=== PATIENT | female | born 1985 | race African-American/Black ===

== ENCOUNTER 2016-06-08 14:43 | Inpatient (IN) | payer MEDICAID, OTHER ==
[~2016-06-08] VITALS: Ht 177.8 cm; Wt 53.1 kg
[~2016-06-08 14:43] MED LIST: ACETAMINOPHEN-1 EAC1 ORAL; ATIVAN0.5 MG PO; AZITHROMYCIN250 MG ORAL; CIPRO500 MG PO; FLAGYL500 MG ORAL; IBUPROFEN600 MG ORAL; IRON325 M2 PO; MACROBID100 MG ORAL; METRONIDAZOLE500 MG ORAL; NKM; NORCO 5-325 TA1 EACH ORAL; PERCOCET 5-3251 EACH ORAL; PHENAZOPYRIDIN200 MG PO; PHENERGAN6.25 MG/5 ORAL; TRAMADOL HCL50 MG ORAL; VIBRAMYCIN100 MG ORAL; ZOFRAN ODT4 MG ORAL
--- NOTE | 2016-06-08 15:17 | Emergency Room Report ---
History of Present Illness General Chief Complaint: Abdominal Pain Source: Patient (Tanesha Bingham) Present Illness HPI 30 YO Female presents emergency department complaining of intermittent 10 /10 in severity right lower abdominal pain x3 days. Patient states she has had lower abdominal pain/discomfort for approximately 3 months and has a history of endometriosis however she states over the course the last 3 days she has had decrease in appetite and frequent intermittent sharp pains on the right lower quadrant. Patient denies constipation or diarrhea she denies vomiting she denies blood in the stool or black tarry stools. Patient denies history of STD she reports some mild thick white vaginal discharge. denies spotting. reports dyspareunia. Denies recent unprotected intercourse. Denies area denies frequency, or dysuria, hematuria. Patient denies trauma or fall. Denies CP, Palpitations, LOC, AMS, dizziness, Changes in Vision, Sensation, paresthesias, or a sudden severe headache. (Tanesha Bingham) Allergies: Coded Allergies: No Known Allergies (Verified , 12/30/10) Patient History Past Medical History: see triage record Past Surgical History: none Pertinent Family History: none Last Menstrual Period: 05/20/16 Now: No Immunizations: UTD Reviewed Nursing Documentation: PMH: Agreed, PSxH: Agreed (Tanesha Bingham) Nursing Documentation-PMH Past Medical History: No History, Except For (Tanesha Bingham) Review of Systems All Other Systems: negative except mentioned in HPI (Tanesha Bingham) Physical Exam Vital Signs Date Time Temp Pulse Resp B/P Pulse Ox O2 Delivery O2 Flow Rate FiO2 06/08/16 14:53 98.2 96 16 115/73 100 Room Air Sp02 EP Interpretation: reviewed, normal General Appearance: no apparent distress, alert, GCS 15, non-toxic Head: normocephalic, atraumatic Eyes: bilateral eye PERRL, bilateral eye normal inspection ENT: hearing grossly normal, normal pharynx, no angioedema, normal voice Neck: full range of motion, supple/symm/no masses Respiratory: chest non-tender, lungs clear, normal breath sounds, speaking full sentences Cardiovascular #1: regular rate, rhythm, no edema Gastrointestinal: normal bowel sounds, soft, no rebound, tenderness - moderate RLQ Tenderness to palpation, pt. also has mid, and left lower quadrant tenderness however not as appreciable as RLQ TTP. negative psoas sign , other Rectal: deferred Genitourinary: normal inspection, no CVA tenderness, cervix normal, ext genitalia/vag normal, os closed, other - Pt exhibits pelvic discomfort during pelvic exam, cervix is tender, thick white d/c is noted. Bilateral adnexal TTP on bimanual exam Musculoskeletal: back normal, gait/station normal, normal range of motion, non- tender, no calf tenderness Neurologic: alert, oriented x3, responsive, motor strength/tone normal, sensory intact, speech normal Psychiatric: judgement/insight normal, memory normal, mood/affect normal Skin: normal color, no rash, warm/dry, well hydrated Lymphatic: no adenopathy (Tanesha Bingham) Medical Decision Making PA Attestation Dr. Pelaez is my supervising Physician whom patient management has been discussed with. (Tanesha Bingham) Medicare Attestation I agree with the exam workup and findings of this patient Patient will require admission for significantly low hemoglobin Contact was made with the admitting physician (JOVANNI PELAEZ D.O.) Diagnostic Impression: Primary Impression: Anemia Qualified Codes: D64.9 - Anemia, unspecified Additional Impression: Bacterial vaginosis ER Course Ddx considered but are not limited to Diverticulitis, acute appy, diarrhea,UC, PUD, GE, pancreatitis, gallstone, renal stone, , PID, ovarian cysts Vital signs: are WNL, pt. is afebrile H&PE are most consistent with moderate RLQ abdominal pain will r/o appendicitis , and do pelvic examination. ORDERS: -CBC: Hb 7.7 , hct 26.7 - CMP: unremarkable -lipase: unremarkable - UA: unremarkable -Vaginal Wet Mount: few clue cells, few bacteria -Type and Screen: O POSITIVE Urine Hcg : negative - CT Abdomen and Pelvis With IV and ORAL Contrast: recently ruptured ovarian cyst per official radiology report. -Pelvic US: increased pelvic vascularity, minimal free-fluid in the cul-de-sac , good Doppler flow bilaterally per preliminary US report. ED INTERVENTIONS: -30mg Toradol IV -4mg morphine IV I feel this is a highly complex case requiring extensive work up including /CT/ US, Blood/urine lab work, repeat exams while in ED, and administration of strong opiates/narcotics for pain control, blood transfusion, and admission. DISPOSITION: at this time pt. will be admitted to Dr. Fitzpatrick for symptomatic anemia. Dr. Fitzpatrick agreed to admit the pt. and to continue pt. care management. Labs Test 06/08/16 15:00 06/08/16 15:40 Urine Color Pale yellow Urine Appearance Clear Urine pH 6 (4.5-8.0) Urine Specific [place] 1.010 (1.005-1.035) Urine Protein Negative (NEGATIVE) Urine Glucose (UA) Negative (NEGATIVE) Urine Ketones Negative (NEGATIVE) Urine Occult Blood 1+ (NEGATIVE) Urine Nitrite Negative (NEGATIVE) Urine Bilirubin Negative (NEGATIVE) Urine Urobilinogen Normal MG/DL (0.0-1.0) Urine Leukocyte Esterase Negative (NEGATIVE) Urine RBC 0-2 /HPF (0 - 2) Urine WBC 0-2 /HPF (0 - 2) Urine Squamous Epithelial Cells Few /LPF (NONE/OCC) Urine Bacteria Few /HPF (NONE) Urine HCG, Qualitative Negative White Blood Count 7.2 K/UL (4.8-10.8) Red Blood Count 4.20 M/UL (4.20-5.40) Hemoglobin 7.7 G/DL (12.0-16.0) Hematocrit 26.8 % (37.0-47.0) Mean Corpuscular Volume 64 FL (80-99) Mean Corpuscular Hemoglobin 18.5 PG (27.0-31.0) Mean Corpuscular Hemoglobin Concent 28.9 G/DL (32.0-36.0) Red Cell Distribution Width 15.2 % (11.6-14.8) Platelet Count 257 K/UL (150-450) Mean Platelet Volume 6.2 FL (6.5-10.1) Neutrophils (%) (Auto) % (45.0-75.0) Lymphocytes (%) (Auto) % (20.0-45.0) Monocytes (%) (Auto) % (1.0-10.0) Eosinophils (%) (Auto) % (0.0-3.0) Basophils (%) (Auto) % (0.0-2.0) Sodium Level 138 mEQ/L (135-145) Potassium Level 3.7 mEQ/L (3.4-4.9) Chloride Level 98 mEQ/L (98-107) Carbon Dioxide Level 26 mEQ/L (20-30) Anion Gap 14 (5-15) Blood Urea Nitrogen 7 mg/dL (7-23) Creatinine 0.9 mg/dL (0.5-0.9) Estimat Glomerular Filtration Rate > 60 mL/min (>60) Glucose Level 105 mg/dL (74-106) Calcium Level 9.3 mg/dL (8.6-10.2) Total Bilirubin 0.4 mg/dL (0.0-1.2) Aspartate Amino Transf (AST/SGOT) 14 U/L (5-40) Alanine Aminotransferase (ALT/SGPT) 6 U/L (3-33) Alkaline Phosphatase 28 U/L (35-104) Total Protein 7.2 g/dL (6.6-8.7) Albumin 4.3 g/dL (3.5-5.2) Globulin 2.9 g/dL Albumin/Globulin Ratio 1.4 (1.0-2.7) Lipase 17 U/L (< 60) (Tanesha Bingham) Last Vital Signs Date Time Temp Pulse Resp B/P Pulse Ox O2 Delivery O2 Flow Rate FiO2 06/08/16 14:53 98.2 96 16 115/73 100 Room Air (Tanesha Bingham) Disposition: ADMITTED INPATIENT Condition: Serious Tanesha Bingham June 08, 2016 15:17 JOVANNI PELAEZ D.O. June 08, 2016 18:17
[2016-06-08] MEDS ORDERED: Ketorolac 30mg Inj IV ONE (15:45)
[2016-06-08 16:00] LABS: APPEARANCE,URINE CLEAR; KETONES,URINE NEGATIVE (NEGATIVE); LEUKOCYTE ESTERASE ,URINE NEGATIVE (NEGATIVE); NITRITE,URINE NEGATIVE (NEGATIVE); PH,URINE 6 (4.5-8.0); PROTEIN,URINE NEGATIVE (NEGATIVE); UROBILINOGEN,URINE NORMAL MG/DL (0.0-1.0)
[2016-06-08 16:07] LABS: MEAN CORPUSCULAR HEMOGLOBIN 18.5 PG (27.0-31.0); MEAN CORPUSCULAR HGB CONC 28.9 G/DL (32.0-36.0); MEAN CORPUSCULAR VOLUME 64 FL (80-99); MEAN PLATELET VOLUME 6.2 FL (6.5-10.1); PLATELET COUNT 257 K/UL (150-450); RED CELL DISTRIBUTION WIDTH 15.2 % (11.6-14.8); WHITE BLOOD COUNT 7.2 K/UL (4.8-10.8)
[2016-06-08 16:15] LABS: ALANINE AMINOTRANSFERASE 6 U/L (3-33); ALBUMIN/GLOBULIN RATIO 1.4 (1.0-2.7); ANION GAP 14 (5-15); ASPARTATE AMINO TRANSFERASE 14 U/L (5-40); CALCIUM 9.3 mg/dL (8.6-10.2); CARBON DIOXIDE 26 mEQ/L (20-30); CHLORIDE 98 mEQ/L (98-107); CREATININE 0.9 mg/dL (0.5-0.9); GLOMERULAR FILTRATION RATE > 60 mL/min (>60); HEMOLYSIS 1; LIPASE 17 U/L (< 60); POTASSIUM 3.7 mEQ/L (3.4-4.9); SODIUM 138 mEQ/L (135-145); TOTAL PROTEIN 7.2 g/dL (6.6-8.7)
[2016-06-08 16:20] LABS: RBC,URINE 0-2 /HPF (0 - 2); WBC,URINE 0-2 /HPF (0 - 2)
[2016-06-08 16:21] LABS: BACTERIA,URINE FEW /HPF; SQUAMOUS EPITHELIAL CELL,UR FEW /LPF (NONE/OCC)
[2016-06-08] MEDS ORDERED: Morphine Sulfate 4mg/ml Inj IVP ONE (17:45)
[2016-06-08] MEDS ORDERED: TRAMADOL HCL50 MG ORAL (18:50)
[2016-06-08 19:15] VITALS: BP 110/74
[2016-06-08 19:20] LABS: ANISOCYTOSIS 2+; BAND NEUTROPHILS % (MANUAL) 1 % (0-8); BASOPHILS % (MANUAL) 0 % (0-2); EOSINOPHILS % (MANUAL) 0 % (0-3); HYPOCHROMASIA 2+; LYMPHOCYTES % (MANUAL) 21 % (20-45); NEUTROPHILS % (MANUAL) 70 % (45-75); PLATELET ESTIMATE ADEQUATE; PLATELET MORPHOLOGY NORMAL; TOTAL CELLS COUNTED 100
[2016-06-08 20:35] VITALS: BP 108/56
[2016-06-08] MEDS ORDERED: Morphine Sulfate 2mg/ml Inj IVP PRN (21:45)
[2016-06-08] MEDS ORDERED: Mylanta II UD 30ml ORAL PRN (21:45)
[2016-06-08] MEDS ORDERED: LORazepam Inj 2mg/ml 1ml IV PRN (21:45)
[2016-06-08] MEDS ORDERED: Miralax 17gm pkt ORAL PRN (21:45)
[2016-06-08] MEDS ORDERED: Zolpidem 5mg tab ORAL PRN (21:45)
[2016-06-08 22:01] LABS: INR 1.1 (0.9-1.1)
[2016-06-08 22:19] LABS: PATH BLOOD SMEAR/OMC SENT TO PATHOLOGIST
[2016-06-08 22:40] VITALS: BP_SYST 101; BP_SYST 111; BP_DIAS 62; BP_DIAS 96
[2016-06-08 23:00] VITALS: BP 112/67
[2016-06-08 23:13] LABS: RETICULOCYTE COUNT 0.4 % (0.0-2.0)
[2016-06-09] VITALS: BP 123/44
[2016-06-09] MEDS ORDERED: traMADol 50mg tab ORAL PRN (03:00)
[2016-06-09] MEDS ORDERED: Tubing Blood Filter IV ONE (03:29)
[2016-06-09] MEDS ORDERED: NS 550ML IV ONE (03:29)
--- NOTE | 2016-06-09 10:23 | Diagnostic Imaging Report ---
Indication:Lower abdominal and pelvic pain Technique: Grayscale and duplex Doppler imaging of the pelvis performed utilizing a transabdominal scan and endovaginal scan. Comparison: None Findings: Uterus is retroverted and slightly heterogeneous. The central endometrial complex is normal in thickness measuring 8 mm. There is increased echogenicity of the and show follicles and good Doppler evidence of blood flow. There is some free fluid which may be physiologic. Uterus is 8.7 x 6.6 x 5.2 cm. Right ovary 4.9 x 4.1 x 2.4 cm. Left ovary 3.8 x 4.3 x 2.2 cm. Impression: Negative pelvic ultrasound
--- NOTE | 2016-06-09 12:33 | Diagnostic Imaging Report ---
Indication: Abdominal pain Technique: Continuous helical transaxial imaging of the abdomen and pelvis was obtained from the lung bases to the pubic symphysis during intravenous contrast administration. Coronal 2-D reformats were also obtained. Study obtained in a Siemens sensation [address] Total Dose length Product (DLP): [address] Dose Index Volume (CTDIvol): 14 mGy Comparison: March 08, 2011 Findings: The lung bases are clear. The liver, spleen, pancreas, gallbladder, kidneys and adrenal glands are unremarkable. There is a tiny hypodensity in the left lobe of the liver (image 10, series 3) probably cystic in nature. There is no hydronephrosis. There is no evidence of bowel obstruction. The uterus is heterogeneous in appearance. There is a small amount of free fluid within the pelvis which could very well be physiologic. Please refer to the pelvic ultrasound report. Impression: No acute findings. Minimal free fluid within the pelvis likely physiologic. Tiny liver hypodensity probably cystic. Please refer to the separately dictated pelvic ultrasound report. The CT scanner at [facility] is accredited by the [employer] and the scans are performed using protocols designed to limit radiation exposure to as low as reasonably achievable to attain images of sufficient resolution adequate for diagnostic evaluation.
--- NOTE | 2016-06-12 10:30 | Discharge Summary ---
Discharge Summary Hospital Course Date of Admission June 08, 2016 at 18:10 Date of Discharge June 09, 2016 at 03:30 Admitting Diagnosis symptomatic anemia GALDINO Nelson is a 30 year old female who was admitted on June 08, 2016 at 18:10 for Symptomatic Anemia Hospital Course dc summary #[id number] Discharge Discharge Disposition Patient signed AMA Discharge Diagnoses: Discharge Instructions Discharge Instructions Special Instructions I have been assigned to complete a D/C Summary on this account. I was not involved in the patient management Jada Leiva NP (Vanchtein) June 12, 2016 10:30
--- NOTE | 2016-06-13 04:39 | Discharge Summary 2 SIG ---
DATE OF ADMISSION: 06/08/2016 DATE OF SIGNING AGAINST MEDICAL ADVICE: 06/09/2016 REASON FOR ADMISSION: 30-year-old female presented to the emergency room with complaint of intermittent in severity, highest 10/10 right lower quadrant abdomen pain for three days. The patient stated , that she had this discomfort intermittently for three months. Patient with a history of endometriosis. However, over the course of the last three days, she had a decrease in appetite and frequent intermittent sharp pains in the right lower quadrant. The patient denied nausea, vomiting, constipation, and diarrhea. She denied blood in stool or black tarry stool. The patient denied history of STD. She did report mild thick white vaginal discharge, but denied vaginal spotting. The patient reported dyspareunia. The patient denied . The patient denied urinary frequency or dysuria. The patient denied recent unprotected sex. No hematuria. In the emergency room the patient was afebrile and normotensive. Pulse oximetry was stable on room air. Hemoglobin - 7.7 and hematocrit- 26.7. The patient had subsequently undergone CT of the abdomen and pelvis which revealed no acute findings. Minimal free fluid within the pelvis, likely physiological. Tiny liver hypodensity, probably cystic. Abdominal, pelvic, and transvaginal ultrasound revealed a retroverted uterus, slightly heterogeneous. Central endometrial complex was normal in thickness, measuring 8 mm. Increased echogenicity. Good Doppler evidence of blood flow. The uterus measured 8.7 x 6.6 x 5.2. Right ovary 4.9 x 4.1 x 2.4 and left ovary 3.8 x 4.3 x 2.2. Negative pelvic ultrasound. Vaginal wet mount revealed some clue cells and few bacteria. The patient was typed and screened. Urine test was negative. CT of the pelvis revealed recently ruptured ovarian cyst. The patient was medicated for pain with 30 mg of Toradol IV and 4 mg of morphine. All other laboratories were unremarkable. UA was unremarkable. Lipase, electrolytes, renal and liver parameters all were stable. The patient was admitted for blood transfusion. ADMITTING DIAGNOSES: 1. Acute symptomatic anemia. 2. Right lower quadrant abdominal pain. 3. Bacterial vaginosis. HOSPITAL STAY: The patient was admitted. The patient was transfused with 2 units of packed red blood cells. Anemia workup revealed iron-deficiency anemia. B12 stable, folate stable, CEA within normal limits. Serology for Chlamydia trachomatis and Neisseria gonorrhoeae was negative. The patient decided to sign against medical advice. Risks and consequences for signing against medical advice were explained to the patient by the nursing staff. The patient was insisted and signed the form. FINAL DIAGNOSES: 1. Right lower quadrant abdominal pain, likely secondary to recently ruptured ovarian cyst. 2. Acute symptomatic anemia. 3. Iron-deficiency anemia. 4. Status post two units packed red blood cell transfusion. 5. Bacterial vaginosis. Cristian Fitzpatrick M.D. I have been assigned to dictate discharge summary on this account and I was not involved in the patient's management. Jada Floreselvira NJosefa DR: JONATHON JOB#: [id number] CC: LES
== END 2016-06-09 03:30 | disposition left against medical advice (07) | DRG 532 ==
LOC: EMR 15:18 → 3E 18:10 → EDBEDREQ 18:58
PROC: 30233N1 Transfusion of Nonautologous Red Blood Cells into Peripheral Vein, Percutaneous Approach (ICD-10-PCS; principal; 2016-06-08)
DX: N83.291 Other ovarian cyst, right side (principal); D50.9 Iron deficiency anemia, unspecified; R10.31 Right lower quadrant pain; N76.0 Acute vaginitis
CPT/HCPCS: 36415; 74177; 76830; 76856; 80053; 81003; 81025; 82378; 82607; 82746; 83540; 83550; 83615; 83690; 85007; 85025; 85044; 85060; 85610; 85651; 85730; 86850; 86900; 86901; 86920; 87210; 87491; 87590

== ENCOUNTER 2016-08-16 10:53 | Emergency (ER) | payer MEDICAID ==
[~2016-08-16] VITALS: Ht 177.8 cm; Wt 54.0 kg
[2016-08-16 11:11] VITALS: BP 100/64
--- NOTE | 2016-08-16 11:24 | Emergency Room Report ---
History of Present Illness General Chief Complaint: Upper Respiratory Illness Source: Patient Present Illness HPI 4 days of upper respiratory symptoms. She also has pressure in her face and green discharge from her nose. Lots of phlegm. Makes her nauseated with one episode of vomiting. No diarrhea, dysuria, rashes. Has had sinusitis in the past. Normal last period. Allergies: Coded Allergies: No Known Allergies (Verified , 12/30/10) Patient History Past Medical History: see triage record Social History: Denies: smoking Social History Narrative unemployed Last Menstrual Period: July Now: No Reviewed Nursing Documentation: PMH: Agreed, PSxH: Agreed Nursing Documentation-PMH Hx Cardiac Problems: No Hx Cancer: No Hx Gastrointestinal Problems: No Hx Neurological Problems: No Review of Systems All Other Systems: negative except mentioned in HPI Physical Exam Vital Signs Date Time Temp Pulse Resp B/P Pulse Ox O2 Delivery O2 Flow Rate FiO2 08/16/16 11:04 98.2 87 20 100/64 100 Room Air Sp02 EP Interpretation: reviewed, normal General Appearance: well appearing, no apparent distress Head: normocephalic, atraumatic Eyes: bilateral eye PERRL, bilateral eye normal inspection ENT: hearing grossly normal, normal voice, moist mucus membranes, nasal congestion Neck: full range of motion, supple Respiratory: chest non-tender, lungs clear, normal breath sounds, no respiratory distress, speaking full sentences Cardiovascular #1: regular rate, rhythm Gastrointestinal: normal inspection Musculoskeletal: gait/station normal, normal range of motion, no calf tenderness Neurologic: alert, normal gait, grossly normal Psychiatric: mood/affect normal Skin: no rash Medical Decision Making Diagnostic Impression: Primary Impression: Sinusitis Qualified Codes: J01.40 - Acute pansinusitis, unspecified ER Course Patient with URI and sinus pain. Ddx: viral, bacterial, sinusitis, bronchitis amongst others. She states antibiotics help. No bronchospasm heard. Levaquin begun. Patient stable for outpatient observation and treatment. Last Vital Signs Date Time Temp Pulse Resp B/P Pulse Ox O2 Delivery O2 Flow Rate FiO2 08/16/16 11:35 98.2 20 100/64 100 Room Air 08/16/16 11:11 87 Status: improved Disposition: HOME, SELF-CARE Condition: Improved Scripts Chlorpheniramine Maleate (CHLOR-TRIMETON) 4 Mg Tablet 4 MG PO Q6HR Y for congestion, #10 TAB Prov: Gabriel Garcia M.D. 08/16/16 Guaifenesin/Codeine Phos* (ROBITUSSIN AC*) 118 Ml Liquid 5 ML ORAL Q6H Y for For Cough, #90 ML 0 Refills Prov: Gabriel Garcia M.D. 08/16/16 Levofloxacin* (LEVAQUIN*) 500 Mg Tablet 500 MG ORAL DAILY, #7 TAB Prov: Gabriel Garcia M.D. 08/16/16 Gabriel Garcia M.D. Aug 16, 2016 11:24
[2016-08-16] MEDS ORDERED: GUAIFENESIN-CO118 M1 ORAL (11:26)
[2016-08-16] MEDS ORDERED: LEVAQUIN500 MG ORAL (11:26)
[2016-08-16] MEDS ORDERED: CHLOR-TRIMETON4 MG PO (11:26)
[2016-08-16] MEDS ORDERED: Levofloxacin 500mg tab ORAL ONE (11:30)
[2016-08-16 11:35] VITALS: BP 100/64
== END 2016-08-16 11:40 | disposition home or self-care (01) ==
LOC: EMR 11:37
DX: J32.9 Chronic sinusitis, unspecified (principal); J06.9 Acute upper respiratory infection, unspecified
CPT/HCPCS: 99284

== ENCOUNTER 2016-11-21 12:36 | Emergency (ER) | payer MEDICAID, OTHER ==
[~2016-11-21] VITALS: Ht 177.8 cm; Wt 54.0 kg
[~2016-11-21 12:36] MED LIST changes: +CHLOR-TRIMETON4 MG PO; +GUAIFENESIN-CO118 M1 ORAL; +LEVAQUIN500 MG ORAL
--- NOTE | 2016-11-21 13:37 | Emergency Room Report ---
History of Present Illness General Chief Complaint: Upper Respiratory Illness Source: Patient Present Illness HPI 31-year-old female presents to the emergency department complaining of generalized body aches, 7/10 in severity sore throat, sneezing, nasal congestion with rhinorrhea, intermittent cough with mucous production and chills x3 days. Patient denies fevers. Patient denies recent travel she reports ill contacts. Patient states she is up-to-date with vaccinations including flu. She denies neck pain or stiffness. Denies dyspnea, wheezes, SOB , hx of asthma or COPD. Denies CP, Palpitations, LOC, AMS, dizziness, Changes in Vision, Sensation, paresthesias, or a sudden severe headache. Allergies: Coded Allergies: No Known Allergies (Verified , 12/30/10) Patient History Past Medical History: see triage record Past Surgical History: none Pertinent Family History: none Last Menstrual Period: 10/20/2016 Now: No Immunizations: UTD Reviewed Nursing Documentation: PMH: Agreed, PSxH: Agreed Nursing Documentation-PMH Past Medical History: No Stated History Hx Cardiac Problems: No Hx Cancer: No Hx Gastrointestinal Problems: No Hx Neurological Problems: No Review of Systems All Other Systems: negative except mentioned in HPI Physical Exam Vital Signs Date Time Temp Pulse Resp B/P (MAP) Pulse Ox O2 Delivery O2 Flow Rate FiO2 11/21/16 12:47 98.4 95 16 112/44 97 Room Air Sp02 EP Interpretation: reviewed, normal General Appearance: no apparent distress, alert, GCS 15, non-toxic Head: normocephalic, atraumatic Eyes: bilateral eye normal inspection, bilateral eye PERRL ENT: hearing grossly normal, normal pharynx, no angioedema, normal voice, TMs + canals normal, uvula midline, moist mucus membranes, pharyngeal erythema Neck: full range of motion, no meningismus, no bony tend, supple/symm/no masses Respiratory: chest non-tender, lungs clear, normal breath sounds, speaking full sentences Cardiovascular #1: regular rate, rhythm, normal capillary refill Gastrointestinal: non tender, soft, no guarding, no rebound Rectal: deferred Genitourinary: normal inspection, no CVA tenderness Musculoskeletal: back normal, gait/station normal, normal range of motion, non- tender Neurologic: alert, oriented x3, responsive, motor strength/tone normal, sensory intact, speech normal Psychiatric: judgement/insight normal, memory normal, mood/affect normal Skin: normal color, no rash, warm/dry, well hydrated Lymphatic: no adenopathy Medical Decision Making PA Attestation Dr. quiñones is my supervising Physician whom patient management has been discussed with. Diagnostic Impression: Primary Impression: Viral upper respiratory tract infection with cough Additional Impressions: Nasal congestion with rhinorrhea Sore throat (viral) ER Course 31-year-old female presents to the emergency department complaining of generalized body aches, 7/10 in severity sore throat, sneezing, nasal congestion with rhinorrhea, intermittent cough with mucous production and chills x3 days. Patient denies fevers. Patient denies recent travel she reports ill contacts. Patient states she is up-to-date with vaccinations including flu. She denies neck pain or stiffness. Denies dyspnea, wheezes, SOB , hx of asthma or COPD. Denies CP, Palpitations, LOC, AMS, dizziness, Changes in Vision, Sensation, paresthesias, or a sudden severe headache. Ddx considered but are not limited to URI, pneumonia, PE, strep pharyngitis, meningitis. Vital signs: Pt.is afebrile VS are WNL H&PE are most consistent with viral upper resp. infection, no evidence of bacterial infection/ meningitis at this time. pt. is non-toxic in appearance and NAD. ORDERS: none required at this time, the diagnosis is clinical ED INTERVENTIONS: -Tylenol PO -d/w pt. conservative treatment with close outpatient follow up with primary care. DISCHARGE: At this time pt. is stable for d/c to home. Will provide printed patient care instructions, and any necessary prescriptions. Care plan and follow up instructions have been discussed with the patient prior to discharge. Last Vital Signs Date Time Temp Pulse Resp B/P (MAP) Pulse Ox O2 Delivery O2 Flow Rate FiO2 11/21/16 12:47 98.4 95 16 112/44 97 Room Air Disposition: HOME, SELF-CARE Condition: Stable Scripts Acetaminophen* (TYLENOL EXTRA STRENGTH*) 500 Mg Tablet 500 MG ORAL Q6H Y for Mild Pain/Temp > 100.5, #20 TAB 0 Refills Prov: Tanesha Bingham P.A. 11/21/16 Cetirizine Hcl* (ZYRTEC*) 10 Mg Tablet 10 MG ORAL DAILY for 30 Days, #30 TAB 0 Refills Prov: Tanesha Bingham 11/21/16 Guaifenesin (Guaifenesin) 1,200 Mg Tab.er.12h 1200 MG PO Q12HR for 10 Days, #20 TAB Prov: Tanesha Bingham 11/21/16 Codeine/Promethazine Hcl* (PROMETHAZINE-CODEINE SYRUP*) 118 Ml Syrup 5 ML ORAL Q6H Y for For Cough, #118 ML 0 Refills Prov: Tanesha Bingham 11/21/16 Departure Forms: Return to Work Return to Work Date: Nov 23, 2016 Work Restrictions: No Heavy Lifting, No Prolonged Standing Other Restrictions: light duty x 5 days Return to Full Activity: Nov 27, 2016 Patient Instructions: Upper Respiratory Infection, Adult Additional Instructions: Take medications as directed. Follow up with a Primary Care Provider in 3-5 days, even if your symptoms have resolved. --Please review list of primary care clinics, if you do not already have a primary care provider Return sooner to ED if new symptoms occur, or current symptoms become worse. Do not drink alcohol, drive, or operate heavy machinery while taking cough syrup as this may cause drowsiness. - Please note that this Emergency Department Report was dictated using [employer] fringe machine operator technology software, occasionally this can lead to erroneous entry secondary to interpretation by the dictation equipment. Tanesha Bingham Nov 21, 2016 13:37
[2016-11-21] MEDS ORDERED: TYLENOL EXTRA500 MG ORAL (13:38)
[2016-11-21] MEDS ORDERED: GUAIFENESIN1200 MG PO (13:38)
[2016-11-21] MEDS ORDERED: ZYRTEC10 MG ORAL (13:38)
[2016-11-21] MEDS ORDERED: PROMETHAZINE-C118 M1 ORAL (13:38)
[2016-11-21 14:05] VITALS: BP 102/68
== END 2016-11-21 14:10 | disposition home or self-care (01) ==
LOC: EMR 13:29
DX: J06.9 Acute upper respiratory infection, unspecified (principal); B34.9 Viral infection, unspecified; J02.9 Acute pharyngitis, unspecified; R09.81 Nasal congestion
CPT/HCPCS: 99284

== ENCOUNTER 2016-11-25 17:39 | Emergency (ER) | payer MEDICAID ==
[~2016-11-25] VITALS: Ht 177.8 cm; Wt 54.4 kg
[~2016-11-25 17:39] MED LIST changes: +GUAIFENESIN1200 MG PO; +PROMETHAZINE-C118 M1 ORAL; +TYLENOL EXTRA500 MG ORAL; +ZYRTEC10 MG ORAL
[2016-11-25] MEDS ORDERED: ZITHROMAX250 MG ORAL (18:25)
[2016-11-25 18:30] VITALS: BP 103/66
--- NOTE | 2016-11-25 22:17 | Emergency Room Report ---
History of Present Illness General Chief Complaint: Flu Like Symptoms Source: Patient Present Illness HPI The patient is a 31-year-old female presenting for continued cough. She was seen in this emergency department recently for the same complaint and diagnosed with A viral infection. She states that symptoms have been present for the past 2 weeks and have been worsening. She admits to subjective fevers and chills. She denies recent travel but admits to a sick contact who is her child with the same symptoms. She denies any other symptoms including nausea, vomiting, shortness of breath, rash, neck pain or stiffness, abdominal pain Allergies: Coded Allergies: No Known Allergies (Verified , 12/30/10) Patient History Past Medical History: see triage record Pertinent Family History: none Reviewed Nursing Documentation: PMH: Agreed, PSxH: Agreed Nursing Documentation-PMH Hx Cardiac Problems: No Hx Cancer: No Hx Gastrointestinal Problems: No Hx Neurological Problems: No Review of Systems All Other Systems: negative except mentioned in HPI Physical Exam Vital Signs Date Time Temp Pulse Resp B/P (MAP) Pulse Ox O2 Delivery O2 Flow Rate FiO2 11/25/16 17:52 99.1 74 20 103/66 99 11/25/16 17:58 Room Air Sp02 EP Interpretation: reviewed, normal General Appearance: no apparent distress, alert, GCS 15, non-toxic Head: normocephalic, atraumatic Eyes: bilateral eye normal inspection, bilateral eye PERRL ENT: normal voice, TMs + canals normal, uvula midline, pharyngeal erythema Neck: full range of motion, supple/symm/no masses Respiratory: chest non-tender, lungs clear, normal breath sounds, no accessory muscle use, no wheezing, speaking full sentences Cardiovascular #1: regular rate, rhythm, no edema Musculoskeletal: back normal, gait/station normal, normal range of motion, non- tender Neurologic: alert, oriented x3, responsive, motor strength/tone normal, sensory intact, speech normal Psychiatric: judgement/insight normal, memory normal, mood/affect normal, no suicidal/homicidal ideation Skin: normal color, no rash, warm/dry, well hydrated Lymphatic: adenopathy - cervical Medical Decision Making PA Attestation Dr. Lamb is my supervising physician. Patient management was discussed with my supervising physician Diagnostic Impression: Primary Impression: Pharyngitis, acute Qualified Codes: J02.9 - Acute pharyngitis, unspecified ER Course The patient is a 31-year-old female presenting for subjective fevers and cough Physical exam: Afebrile. No apparent distress HEENT: There is pharyngeal erythema. No tonsillar edema or exudate. Otherwise unremarkable. There is cervical lymphadenopathy Lungs are clear to auscultation bilaterally Chest x-ray unremarkable due to patient's symptoms worsening with symptomatic treatment, she'll be discharged home with prescription for azithromycin. ER precautions are given Chest X-Ray Diagnostic Results Chest X-Ray Diagnostic Results : Chest X-Ray Ordered: Yes # of Views/Limited/Complete: 1 View Indication: Other - cough EP Interpretation: Yes Interpretation: no consolidation, no effusion, no pneumothorax, no acute cardiopulmonary disease Impression: No acute disease Electronically Signed by: TINO Beavers Scribe Text My and my supervising physician's interpretation of the chest xrays are there is no consolidation, no effusion, no acute cardiopulmonary disease, no pneumothorax Last Vital Signs Date Time Temp Pulse Resp B/P (MAP) Pulse Ox O2 Delivery O2 Flow Rate FiO2 11/25/16 18:30 99.1 72 20 103/66 99 Room Air Status: improved Disposition: HOME, SELF-CARE Condition: Improved Scripts Azithromycin* (ZITHROMAX*) 250 Mg Tablet 250 MG ORAL DAILY, #6 TAB 0 Refills Take two tables once daily for 1 day, then one tablet once daily for 4 days. Prov: AILEEN MILLER 11/25/16 Patient Instructions: Pharyngitis, [id number] Additional Instructions: I discussed my findings with the patient. All questions and concerns have been answered. Treatment and medication compliance have been addressed. I advised the patient that they need to follow up with PMD in 3-5 days. Return to ED if pain remains or worsens, cough worsens or remains, you notice blood in your sputum, you notice wheezing, you experience a fever, or if needed for any reason. Patient verbalized understanding of discharge instructions. AILEEN MILLER Nov 25, 2016 22:17
--- NOTE | 2016-11-26 11:59 | Diagnostic Imaging Report ---
Indication: Cough Comparison: 12/28/10 A single view chest radiograph was obtained. Findings: Cardiomediastinal appearance is within normal limits for age. Pulmonary vascularity is appropriate. The diaphragmatic contour is smooth and costophrenic angles are sharp. No pleural effusions are identified. The bones are unremarkable. Impression: No acute findings
== END 2016-11-25 18:39 | disposition home or self-care (01) ==
LOC: EMR 18:08
DX: J02.9 Acute pharyngitis, unspecified (principal)
CPT/HCPCS: 71010; 99283

== ENCOUNTER 2016-12-25 14:23 | Emergency (ER) | payer MEDICAID ==
[~2016-12-25] VITALS: Ht 177.8 cm; Wt 54.4 kg
[~2016-12-25 14:23] MED LIST changes: +ZITHROMAX250 MG ORAL
[2016-12-25] MEDS ORDERED: NKM (14:42)
[2016-12-25] MEDS ORDERED: ROBAXIN-750750 MG PO (15:19)
[2016-12-25] MEDS ORDERED: IBUPROFEN600 MG ORAL (15:19)
[2016-12-25 15:25] VITALS: BP 110/62
--- NOTE | 2016-12-25 16:50 | Emergency Room Report ---
History of Present Illness General Chief Complaint: Lower Back Pain or Injury Source: Patient Present Illness HPI The patient is a 31-year-old female presenting for lower back pain. She states that this occurred 2 days ago after lifting heavy objects at work. Pain is an 8 /10 dull ache. Worse with movement such as bending over. She denies previous injury to the back. She denies any radiating pain. She denies any numbness or tingling. She has not tried any pain medications at. She denies any other symptoms including nausea, vomiting, fever, chills, incontinence Allergies: Coded Allergies: No Known Allergies (Verified , 12/30/10) Patient History Past Medical History: see triage record Pertinent Family History: none Last Menstrual Period: Current Now: No Reviewed Nursing Documentation: PMH: Agreed, PSxH: Agreed Nursing Documentation-PMH Hx Cancer: No Hx Gastrointestinal Problems: No Hx Neurological Problems: No Review of Systems All Other Systems: negative except mentioned in HPI Physical Exam Vital Signs Date Time Temp Pulse Resp B/P (MAP) Pulse Ox O2 Delivery O2 Flow Rate FiO2 12/25/16 14:38 97.9 85 16 101/56 100 Room Air Sp02 EP Interpretation: reviewed, normal General Appearance: no apparent distress, alert, GCS 15, non-toxic Head: normocephalic, atraumatic Eyes: bilateral eye normal inspection, bilateral eye PERRL ENT: hearing grossly normal, normal pharynx, no angioedema, normal voice Respiratory: chest non-tender, lungs clear, normal breath sounds, speaking full sentences Musculoskeletal: normal inspection, gait/station normal, tender - Lumbar paraspinal muscles Neurologic: alert, oriented x3, responsive, motor strength/tone normal, sensory intact, speech normal Psychiatric: judgement/insight normal, memory normal, mood/affect normal, no suicidal/homicidal ideation Skin: normal color, no rash, warm/dry, well hydrated Medical Decision Making PA Attestation Dr. Ponce is my supervising physician. Patient management was discussed with my supervising physician Diagnostic Impression: Primary Impression: Muscle strain ER Course The patient is a 31-year-old female presenting for lower back pain. Ddx considered include but not limited to lumbar strain, degenerative disease, fracture, among others PE: NAD Back: No midline tenderness. No step-offs. Full active range of motion is intact. Normal gait. There is tender to palpation over bilateral lumbar paraspinal muscles. Otherwise unremarkable The patient will be discharged home with prescription for Motrin and Robaxin. ER precautions are given Last Vital Signs Date Time Temp Pulse Resp B/P (MAP) Pulse Ox O2 Delivery O2 Flow Rate FiO2 12/25/16 15:25 97.9 85 20 110/62 98 Room Air Status: improved Disposition: HOME, SELF-CARE Condition: Improved Scripts Methocarbamol* (ROBAXIN-750*) 750 Mg Tablet 750 MG PO TID, #21 TAB 0 Refills Prov: AILEEN MILLER 12/25/16 Ibuprofen* (MOTRIN*) 600 Mg Tablet 600 MG ORAL Q8H Y for For Pain, #30 TAB 0 Refills Prov: AILEEN MILLER 12/25/16 Patient Instructions: Back Pain, Adult Additional Instructions: I discussed my findings with the patient. All questions and concerns have been answered. Treatment and medication compliance have been addressed. I advised the patient that they need to follow up with PMD in 3-5 days. Return to ED if pain remains or worsens, numbness or tingling occurs, new rash is noticed, fever is noticed, or if needed for any reason. Patient verbalized understanding of discharge instructions. AILEEN MILLER Dec 25, 2016 16:50
== END 2016-12-25 15:25 | disposition home or self-care (01) ==
LOC: EMR 15:12
DX: S39.012A Strain of muscle, fascia and tendon of lower back, initial encounter (principal); X50.0XXA Overexertion from strenuous movement or load, initial encounter; Y92.89 Other specified places as the place of occurrence of the external cause
CPT/HCPCS: 99284

== ENCOUNTER 2017-02-02 13:12 | Emergency (ER) | payer MEDICAID ==
[~2017-02-02] VITALS: Ht 177.8 cm; Wt 54.4 kg
[~2017-02-02 13:12] MED LIST changes: +ROBAXIN-750750 MG PO
[2017-02-02 13:41] VITALS: BP 96/39
--- NOTE | 2017-02-02 14:08 | Emergency Room Report ---
History of Present Illness General Chief Complaint: Flu Like Symptoms Source: Patient Present Illness HPI 31-year-old female patient presents to ER complaining of flulike symptoms and suprapubic pain. Patient reports flu symptoms have been for the past few days; complains of sore throat, dry cough, and pain with swallowing since yesterday. Patient states she has been able to eat during this time but it is painful. Patient also complains of suprapubic pain, states pain is 9/10.. Patient reports the suprapubic pain has been going on for "a while now" and getting worse. Patient reports history of sexual contact one week ago with boyfriend with whom she is in a mutually monogamous relationship. Patient also reports vaginal discharge for the "past few days"; denies foul- smelling odor, pruritis, lesions. Patient denies use of control medication or other contraceptive methods. Patient reports history of endometriosis and states she will be seen by specialist next week for further treatment. Patient denies taking any medications currently for relief of symptoms. Patient denies fever, nausea, vomiting, dysuria, hematuria, constipation, diarrhea. Allergies: Coded Allergies: No Known Allergies (Verified , 12/30/10) Patient History Past Medical History: see triage record Past Surgical History: none Pertinent Family History: none Now: No Reviewed Nursing Documentation: PMH: Agreed, PSxH: Agreed Nursing Documentation-PMH Hx Cancer: No Hx Gastrointestinal Problems: No Hx Neurological Problems: No Review of Systems Constitutional: Reports: see HPI Eye: Reports: no symptoms ENT: Reports: see HPI Respiratory: Reports: no symptoms Cardiovascular: Reports: no symptoms Gastrointestinal: Reports: no symptoms Genitourinary: Reports: see HPI Musculoskeletal: Reports: no symptoms Skin: Reports: no symptoms Psychiatric: Reports: no symptoms Neurological: Reports: no symptoms All Other Systems: negative except mentioned in HPI Physical Exam Vital Signs Date Time Temp Pulse Resp B/P (MAP) Pulse Ox O2 Delivery O2 Flow Rate FiO2 02/02/17 13:27 98.4 103 20 96/39 99 Room Air Sp02 EP Interpretation: reviewed, normal General Appearance: alert, GCS 15, mild distress Head: normocephalic, atraumatic Eyes: bilateral eye normal inspection, bilateral eye PERRL ENT: TMs + canals normal, moist mucus membranes, nasal congestion, pharyngeal erythema, other - exudates on posterior oropharynx, no frontal and ethmoid sinus tenderness. Respiratory: normal inspection, lungs clear, normal breath sounds, no rhonchi, no respiratory distress, no retraction Cardiovascular #1: normal inspection, regular rate, rhythm, no murmur, no rub Gastrointestinal: normal bowel sounds, non-distended, guarding, tenderness - RLQ Genitourinary: cervix normal, ext genitalia/vag normal, other - Positive Cervical motion tenderness, pain on bimanual exam, milky white fluid noted in vaginal canal. Neurologic: alert, oriented x3 Psychiatric: mood/affect normal Skin: normal inspection, no rash Lymphatic: no adenopathy Medical Decision Making PA Attestation Dr. Wilburn is my supervising Physician whom patient management has been discussed with. Diagnostic Impression: Primary Impression: Pelvic pain Additional Impressions: PID (acute pelvic inflammatory disease) Ovarian cyst Qualified Codes: N83.201 - Unspecified ovarian cyst, right side ER Course 31-year-old female patient presents to ER complaining of flulike symptoms and suprapubic pain. Patient reports flu symptoms have been for the past few days; complains of sore throat, dry cough, and pain with swallowing since yesterday. Patient states she has been able to eat during this time but it is painful. Patient also complains of suprapubic pain, states pain is 9/10. Patient reports the suprapubic pain has been going on for "a while now" and getting worse. Patient reports history of sexual contact one week ago with boyfriend with whom she is in a mutually monogamous relationship. Patient also reports vaginal discharge for the "past few days"; denies foul- smelling odor, pruritis, lesions. Patient denies use of control medication or other contraceptive methods. Patient reports history of endometriosis and states she will be seen by specialist next week for further treatment. Patient denies taking any medications currently for relief of symptoms. Ddx considered but are not limited to appendicitis, UTI, PID, ovarian torsion, STI. Vital signs: are WNL, pt. is afebrile H&PE are most consistent with PID, and Strep throat ORDERS: -Labs drawn, results show microscopic hematuria in urine, consistent with diagnosis. CBC, CMP: mild anemia, electrolytes within normal limits.. CT imaging performed, results discussed with patient. ED INTERVENTIONS: -Patient given fluids. -4mg Morphine IV - Zofran -Toradol. DISCHARGE: At this time pt. is stable for d/c to home. Will provide printed patient care instructions, and any necessary prescriptions. Care plan and follow up instructions have been discussed with the patient prior to discharge Labs Test 02/02/17 15:10 White Blood Count 10.2 K/UL (4.8-10.8) Red Blood Count 4.82 M/UL (4.20-5.40) Hemoglobin 8.9 G/DL (12.0-16.0) Hematocrit 32.1 % (37.0-47.0) Mean Corpuscular Volume 67 FL (80-99) Mean Corpuscular Hemoglobin 18.5 PG (27.0-31.0) Mean Corpuscular Hemoglobin Concent 27.7 G/DL (32.0-36.0) Red Cell Distribution Width 14.5 % (11.6-14.8) Platelet Count 251 K/UL (150-450) Mean Platelet Volume 6.1 FL (6.5-10.1) Neutrophils (%) (Auto) 70.0 % (45.0-75.0) Lymphocytes (%) (Auto) 15.3 % (20.0-45.0) Monocytes (%) (Auto) 12.2 % (1.0-10.0) Eosinophils (%) (Auto) 1.6 % (0.0-3.0) Basophils (%) (Auto) 0.9 % (0.0-2.0) Urine Color Pale yellow Urine Appearance Clear Urine pH 6.5 (4.5-8.0) Urine Specific [place] 1.010 (1.005-1.035) Urine Protein Negative (NEGATIVE) Urine Glucose (UA) Negative (NEGATIVE) Urine Ketones 1+ (NEGATIVE) Urine Occult Blood 2+ (NEGATIVE) Urine Nitrite Negative (NEGATIVE) Urine Bilirubin Negative (NEGATIVE) Urine Urobilinogen Normal MG/DL (0.0-1.0) Urine Leukocyte Esterase Negative (NEGATIVE) Urine RBC 2-4 /HPF (0 - 2) Urine WBC 0-2 /HPF (0 - 2) Urine Squamous Epithelial Cells Few /LPF (NONE/OCC) Urine Bacteria Occasional /HPF (NONE) Urine HCG, Qualitative Negative Sodium Level 138 MMOL/L (136-145) Potassium Level 4.2 MMOL/L (3.5-5.1) Chloride Level 103 MMOL/L (98-107) Carbon Dioxide Level 26 MMOL/L (21-32) Anion Gap 9 mmol/L (5-15) Blood Urea Nitrogen 7 mg/dL (7-18) Creatinine 0.8 MG/DL (0.55-1.30) Estimat Glomerular Filtration Rate > 60 mL/min (>60) Glucose Level 90 MG/DL (74-106) Calcium Level 8.3 MG/DL (8.5-10.1) Total Bilirubin 0.5 MG/DL (0.2-1.0) Aspartate Amino Transf (AST/SGOT) 19 U/L (15-37) Alanine Aminotransferase (ALT/SGPT) 8 U/L (12-78) Alkaline Phosphatase 35 U/L (46-116) Total Protein 8.8 G/DL (6.4-8.2) Albumin 4.2 G/DL (3.4-5.0) Globulin 4.6 g/dL Albumin/Globulin Ratio 0.9 (1.0-2.7) Lipase 53 U/L (73-393) CT/MRI/US Diagnostic Results CT/MRI/US Diagnostic Results : Imaging Test Ordered: CT abdomen with contrast Impression Mild stranding in the pelvis, please correlate clinically for PID. Nonspecific endometrial fluid, cannot exclude infection/inflammation. Possible small bilateral adnexal cysts or hydrosalpinx. No hydronephrosis or ureteral calculus. No appendicitis, SBO, or diverticulitis. Unremarkable gallbladder and pancreas. Last Vital Signs Date Time Temp Pulse Resp B/P (MAP) Pulse Ox O2 Delivery O2 Flow Rate FiO2 02/02/17 13:41 103 20 Room Air 02/02/17 13:41 98.4 96/39 99 Disposition: HOME, SELF-CARE Condition: Stable Scripts Amoxicillin (AMOXICILLIN) 500 Mg Tablet 500 MG PO BID for 10 Days, #20 TAB Prov: Elliot Hand P.A. 02/02/17 Ibuprofen* (MOTRIN*) 400 Mg Tablet 400 MG ORAL Q6H, #30 TAB 0 Refills Prov: Elliot Hand P.A. 02/02/17 Doxycycline Hyclate* (VIBRAMYCIN*) 100 Mg Capsule 100 MG ORAL EVERY 12 HOURS for 14 Days, #28 CAP 0 Refills Prov: Elliot Hand 02/02/17 Patient Instructions: Endometriosis, Pelvic Inflammatory Disease, [id number] Additional Instructions: Followup with primary care provider in 3 -5 days. Take medications as directed. Patient questions asked and answered. ER precautions given, patient instructed to return to ER immediately for any new or worsening of symptoms. Elliot Hand Feb 02, 2017 14:08
[2017-02-02 15:34] LABS: ANION GAP 9 mmol/L (5-15); BLOOD UREA NITROGEN 7 mg/dL (7-18); CALCIUM 8.3 MG/DL (8.5-10.1); CARBON DIOXIDE 26 MMOL/L (21-32); CHLORIDE 103 MMOL/L (98-107); CREATININE 0.8 MG/DL (0.55-1.30); POTASSIUM 4.2 MMOL/L (3.5-5.1); SODIUM 138 MMOL/L (136-145)
[2017-02-02 15:36] LABS: BASOPHILS % (AUTO) 0.9 % (0.0-2.0); EOSINOPHILS % (AUTO) 1.6 % (0.0-3.0); HEMATOCRIT 32.1 % (37.0-47.0); HEMOGLOBIN 8.9 G/DL (12.0-16.0); LYMPHOCYTES % (AUTO) 15.3 % (20.0-45.0); MEAN CORPUSCULAR VOLUME 67 FL (80-99); MONOCYTES % (AUTO) 12.2 % (1.0-10.0); PLATELET COUNT 251 K/UL (150-450); RED BLOOD COUNT 4.82 M/UL (4.20-5.40); RED CELL DISTRIBUTION WIDTH 14.5 % (11.6-14.8); WHITE BLOOD COUNT 10.2 K/UL (4.8-10.8)
[2017-02-02 15:38] LABS: ALANINE AMINOTRANSFERASE 8 U/L (12-78); ALBUMIN 4.2 G/DL (3.4-5.0); ALBUMIN/GLOBULIN RATIO 0.9 (1.0-2.7); ALKALINE PHOSPHATASE 35 U/L (46-116); ASPARTATE AMINO TRANSFERASE 19 U/L (15-37); BILIRUBIN,TOTAL 0.5 MG/DL (0.2-1.0)
[2017-02-02 15:40] VITALS: BP 97/59
[2017-02-02] MEDS ORDERED: Morphine Sulfate 4mg/ml Inj IVP ONE (15:45)
[2017-02-02] MEDS ORDERED: Lidocaine 1% MPF 10mg/ml 5ml INJ ONE (16:00)
[2017-02-02 16:53] LABS: APPEARANCE,URINE CLEAR; BILIRUBIN, URINE NEGATIVE (NEGATIVE); COLOR,URINE PALE YELLOW; GLUCOSE, URINE (UA) NEGATIVE (NEGATIVE); KETONES,URINE 1+ (NEGATIVE); LEUKOCYTE ESTERASE ,URINE NEGATIVE (NEGATIVE); NITRITE,URINE NEGATIVE (NEGATIVE); PH,URINE 6.5 (4.5-8.0); PROTEIN,URINE NEGATIVE (NEGATIVE); UROBILINOGEN,URINE NORMAL MG/DL (0.0-1.0)
[2017-02-02 17:30] VITALS: BP 99/59
[2017-02-02] MEDS ORDERED: Ketorolac 30mg Inj IV ONE (18:00)
[2017-02-02] MEDS ORDERED: VIBRAMYCIN100 MG ORAL (18:34)
[2017-02-02] MEDS ORDERED: IBUPROFEN400 MG ORAL (18:51)
[2017-02-02] MEDS ORDERED: AMOXICILLIN500 M1 PO (19:11)
[2017-02-02 19:30] VITALS: BP 107/57
--- NOTE | 2017-02-03 10:16 | Diagnostic Imaging Report ---
Indication: Abdominal pain Technique: CT of the abdomen and pelvis utilizing automated exposure control with intravenous contrast. Venous scanning performed. CT dose: Total DLP 503.88 mGycm; CTDI vol 9.54 mGy Comparison: 06/08/2016 Findings: Imaged lung bases are clear. Heart size within normal limits. No pericardial effusion. Subcentimeter well-circumscribed hypodensities noted in the liver too small to definitively characterize but likely simple hepatic cysts. Gallbladder is unremarkable in appearance. No intrahepatic or extra hepatic biliary ductal dilatation. Hepatic veins and portal veins are patent. Spleen is within the upper limits for normal size. Adrenal glands and pancreas grossly unremarkable. There is no bowel obstruction. No free intraperitoneal air. There is a small amount of free fluid in the pelvis. The appendix is normal. Kidneys enhance symmetrically. There is a punctate nonobstructing stone in the midpole of the left kidney (series 3 image #37). No evidence of hydronephrosis or perinephric stranding bilaterally. Bladder is unremarkable in appearance. Fluid is noted within the endometrial canal. Question bicornuate uterus or additional congenital mullerian/uterine figuration abnormality. Consider pelvic ultrasound or pelvic MRI for better assessment.. There are possible small bilateral adnexal cysts versus hydrosalpinx. Abdominal aorta is normal in caliber. No acute osseous abnormality seen. Impression: Nonspecific endometrial fluid with trace free fluid in the pelvis. Bilateral adnexal cysts versus hydrosalpinx. Correlate clinically to exclude PID. Some findings may be physiologic. No evidence of appendicitis. Tiny punctate nonobstructing stone in the left kidney. No evidence of hydronephrosis bilaterally. Additional finding as above. The CT scanner at [facility] is accredited by the [employer] and the scans are performed using protocols designed to limit radiation exposure to as low as reasonably achievable to attain images of sufficient resolution adequate for diagnostic evaluation.
== END 2017-02-02 19:23 | disposition home or self-care (01) ==
LOC: EMR 14:05
DX: R10.2 Pelvic and perineal pain (principal); N73.9 Female pelvic inflammatory disease, unspecified; N83.209 Unspecified ovarian cyst, unspecified side
CPT/HCPCS: 36415; 74177; 80053; 81003; 81025; 83690; 85025; 87210; 96361; 96372; 96374; 96375; 99284; J0696; J1885; J2270; Q9967

== ENCOUNTER 2017-04-19 19:09 | Emergency (ER) | payer SELFPAY ==
[~2017-04-19] VITALS: Ht 170.2 cm; Wt 54.4 kg
[~2017-04-19 19:09] MED LIST changes: +AMOXICILLIN500 M1 PO; +IBUPROFEN400 MG ORAL
--- NOTE | 2017-04-19 19:19 | Emergency Room Report ---
History of Present Illness General Source: Patient Present Illness HPI 31-year-old female, presenting with wanting a test. States that for the last 3 days she has felt some nausea. No vomiting. No abdominal pain. No abnormal vaginal bleeding. States that she has 2 kids, and the last time she felt like this, she was . Has not taken any urine at Allergies: Coded Allergies: No Known Allergies (Verified , 12/30/10) Patient History Past Medical History: see triage record Past Surgical History: none Pertinent Family History: none Reviewed Nursing Documentation: PMH: Agreed, PSxH: Agreed Nursing Documentation-PMH Hx Cancer: No Hx Gastrointestinal Problems: No Hx Neurological Problems: No Review of Systems All Other Systems: negative except mentioned in HPI Physical Exam Sp02 EP Interpretation: reviewed, normal General Appearance: normal inspection, well appearing, no apparent distress, alert, GCS 15, non-toxic Head: normocephalic, atraumatic Eyes: bilateral eye normal inspection, bilateral eye PERRL, bilateral eye EOMI ENT: normal ENT inspection, normal pharynx, normal voice, moist mucus membranes Neck: normal inspection, full range of motion, supple Respiratory: normal inspection, lungs clear, normal breath sounds, no respiratory distress, no retraction, no wheezing, speaking full sentences, chest symmetrical Cardiovascular #1: normal inspection, regular rate, rhythm, no edema, normal capillary refill Cardiovascular #2: 2+ radial (R), 2+ radial (L) Gastrointestinal: normal inspection, non tender, soft, non-distended, no guarding Musculoskeletal: normal inspection, back normal, normal range of motion, non- tender Neurologic: normal inspection, alert, oriented x3, responsive, motor strength/ tone normal, sensory intact, normal gait, speech normal Psychiatric: normal inspection, judgement/insight normal, memory normal Skin: normal inspection, normal color, no rash, warm/dry, well hydrated, normal turgor Medical Decision Making Diagnostic Impression: Primary Impression: Anemia Additional Impression: Concern about unplanned without diagnosis ER Course 31-year-old female presenting with wanting a test, states that she has had some nausea DDX: Plan: UCG beta hCG ER course: Patient has remained stable during ED stay. labs unremarkable except anemia, states she has a hx of anemia, asymptomatic at this time. states she gets heavy periods. told to fu with obgyn and to take iron pills ucg neg Disposition: Patient is to be discharged to home. Patient is instructed to follow up with their primary care doctor within 5 days. Please note that this Emergency Department Report was dictated using [email or web address] technology software, occasionally this can lead to erroneous entry secondary to interpretation by the dictation equipment Laboratory Tests Test 04/19/17 18:50 04/19/17 18:56 White Blood Count 6.8 K/UL (4.8-10.8) Red Blood Count 4.07 M/UL (4.20-5.40) L Hemoglobin 7.8 G/DL (12.0-16.0) L Hematocrit 26.5 % (37.0-47.0) L Mean Corpuscular Volume 65 FL (80-99) L Mean Corpuscular Hemoglobin 19.1 PG (27.0-31.0) L Mean Corpuscular Hemoglobin Concent 29.3 G/DL (32.0-36.0) L Red Cell Distribution Width 15.7 % (11.6-14.8) H Platelet Count 313 K/UL (150-450) Mean Platelet Volume 7.4 FL (6.5-10.1) Neutrophils (%) (Auto) 61.4 % (45.0-75.0) Lymphocytes (%) (Auto) 27.8 % (20.0-45.0) Monocytes (%) (Auto) 9.8 % (1.0-10.0) Eosinophils (%) (Auto) 2.7 % (0.0-3.0) Basophils (%) (Auto) 1.2 % (0.0-2.0) Urine Color Pale yellow Urine Appearance Slightly cloudy Urine pH 9 (4.5-8.0) Urine Specific [place] 1.015 (1.005-1.035) Urine Protein Negative (NEGATIVE) Urine Glucose (UA) Negative (NEGATIVE) Urine Ketones Negative (NEGATIVE) Urine Occult Blood Negative (NEGATIVE) Urine Nitrite Negative (NEGATIVE) Urine Bilirubin Negative (NEGATIVE) Urine Urobilinogen Normal MG/DL (0.0-1.0) Urine Leukocyte Esterase 1+ (NEGATIVE) H Urine RBC 0-2 /HPF (0 - 2) Urine WBC 0-2 /HPF (0 - 2) Urine Squamous Epithelial Cells Many /LPF (NONE/OCC) H Urine Bacteria Moderate /HPF (NONE) H Urine HCG, Qualitative Negative (NEGATIVE) Sodium Level 143 MMOL/L (136-145) Potassium Level 4.5 MMOL/L (3.5-5.1) Chloride Level 108 MMOL/L (98-107) H Carbon Dioxide Level 28 MMOL/L (21-32) Anion Gap 7 mmol/L (5-15) Blood Urea Nitrogen 7 mg/dL (7-18) Creatinine 0.7 MG/DL (0.55-1.30) Estimate Glomerular Filtration Rate > 60 mL/min (>60) Glucose Level 93 MG/DL (74-106) Calcium Level 8.5 MG/DL (8.5-10.1) Total Bilirubin 0.3 MG/DL (0.2-1.0) Aspartate Amino Transferase (AST) 14 U/L (15-37) L Alanine Aminotransferase (ALT) 12 U/L (12-78) Alkaline Phosphatase 70 U/L (46-116) Total Protein 7.9 G/DL (6.4-8.2) Albumin 4.0 G/DL (3.4-5.0) Globulin 3.9 g/dL Albumin/Globulin Ratio 1.0 (1.0-2.7) Human Chorionic Gonadotropin, Quant 6 mIU/mL (1-6) Disposition: HOME, SELF-CARE Condition: Improved Referrals: NOT CHOSEN KRISTOPHER/,REFERRING (PCP) Tom Ponce M.D. Apr 19, 2017 19:19
[2017-04-19 19:25] LABS: APPEARANCE,URINE SLIGHTLY CLOUDY; BILIRUBIN, URINE NEGATIVE (NEGATIVE); COLOR,URINE PALE YELLOW; GLUCOSE, URINE (UA) NEGATIVE (NEGATIVE); KETONES,URINE NEGATIVE (NEGATIVE); LEUKOCYTE ESTERASE ,URINE 1+ (NEGATIVE); NITRITE,URINE NEGATIVE (NEGATIVE); PH,URINE 9 (4.5-8.0); PROTEIN,URINE NEGATIVE (NEGATIVE); UROBILINOGEN,URINE NORMAL MG/DL (0.0-1.0)
[2017-04-19 19:30] LABS: HEMATOCRIT 26.5 % (37.0-47.0); HEMOGLOBIN 7.8 G/DL (12.0-16.0); MEAN CORPUSCULAR VOLUME 65 FL (80-99); PLATELET COUNT 313 K/UL (150-450); RED BLOOD COUNT 4.07 M/UL (4.20-5.40); RED CELL DISTRIBUTION WIDTH 15.7 % (11.6-14.8); WHITE BLOOD COUNT 6.8 K/UL (4.8-10.8)
[2017-04-19 19:31] LABS: BASOPHILS % (AUTO) 1.2 % (0.0-2.0); EOSINOPHILS % (AUTO) 2.7 % (0.0-3.0); LYMPHOCYTES % (AUTO) 27.8 % (20.0-45.0); MONOCYTES % (AUTO) 9.8 % (1.0-10.0); NEUTROPHILS % (AUTO) 61.4 % (45.0-75.0)
[2017-04-19 19:37] LABS: ANION GAP 7 mmol/L (5-15); BLOOD UREA NITROGEN 7 mg/dL (7-18); CALCIUM 8.5 MG/DL (8.5-10.1); CARBON DIOXIDE 28 MMOL/L (21-32); CHLORIDE 108 MMOL/L (98-107); CREATININE 0.7 MG/DL (0.55-1.30); POTASSIUM 4.5 MMOL/L (3.5-5.1); SODIUM 143 MMOL/L (136-145)
[2017-04-19 19:42] LABS: ALANINE AMINOTRANSFERASE 12 U/L (12-78); ALKALINE PHOSPHATASE 70 U/L (46-116); ASPARTATE AMINO TRANSFERASE 14 U/L (15-37); BILIRUBIN,TOTAL 0.3 MG/DL (0.2-1.0)
[2017-04-19 20:33] VITALS: BP 96/57
== END 2017-04-19 20:34 | disposition home or self-care (01) ==
LOC: EMR 19:09
DX: D64.9 Anemia, unspecified (principal); Z32.00 Encounter for pregnancy test, result unknown
CPT/HCPCS: 36415; 80053; 81001; 81025; 84702; 85025; 87086; 99283

== ENCOUNTER 2017-06-28 11:00 | Emergency (ER) | payer MEDICAID ==
[~2017-06-28] VITALS: Ht 177.8 cm; Wt 56.2 kg
[2017-06-28 11:27] VITALS: BP 101/56
[2017-06-28] MEDS ORDERED: TAMIFLU75 MG ORAL (11:40)
[2017-06-28] MEDS ORDERED: IBUPROFEN600 MG ORAL (11:40)
--- NOTE | 2017-06-28 11:43 | Emergency Room Report ---
History of Present Illness General Chief Complaint: Flu Like Symptoms Source: Patient, Medical Record Present Illness HPI Patient presents with complaints of body ache Sore throat runny nose Patient also has a mild headache denies any posterior neck pain denies any photophobia Patient also had mild cough Denies any chest pain or short of breath Denies any vomiting or diarrhea patient had increased nausea Denies any other rash Denies any recent travel Symptoms ongoing since yesterday Allergies: Coded Allergies: No Known Allergies (Verified , 12/30/10) Patient History Past Medical History: see triage record Pertinent Family History: none Last Menstrual Period: 05/23/17 Reviewed Nursing Documentation: PMH: Agreed; PSxH: Agreed Nursing Documentation-PMH Past Medical History: No History, Except For Hx Cancer: No Hx Gastrointestinal Problems: No Hx Neurological Problems: No Review of Systems All Other Systems: negative except mentioned in HPI Physical Exam Vital Signs Date Time Temp Pulse Resp B/P (MAP) Pulse Ox O2 Delivery O2 Flow Rate FiO2 06/28/17 11:21 100.8 106 18 101/56 96 Room Air 100.8 Sp02 EP Interpretation: reviewed, normal General Appearance: well appearing, no apparent distress Head: normocephalic, atraumatic Eyes: bilateral eye PERRL, bilateral eye EOMI ENT: hearing grossly normal, TMs + canals normal, uvula midline, pharyngeal erythema - no pustules Neck: full range of motion, supple, no meningismus, no bony tend Respiratory: lungs clear, normal breath sounds, no rhonchi, no respiratory distress, no retraction, no accessory muscle use Cardiovascular #1: normal peripheral pulses, regular rate, rhythm, no edema, no gallop, no JVD, no murmur Gastrointestinal: normal bowel sounds, non tender, soft, no mass, no organomegaly, non-distended, no guarding, no hernia, no pulsatile mass, no rebound Genitourinary: no CVA tenderness Musculoskeletal: normal inspection Neurologic: oriented x3, responsive, blueprint trimmer III-XII nml as tested, motor strength/ tone normal, sensory intact Psychiatric: mood/affect normal Skin: normal color, no rash, warm/dry, palpation normal Lymphatic: normal inspection, no adenopathy Medical Decision Making Diagnostic Impression: Primary Impression: Influenza-like symptoms ER Course Patient's symptoms are consistent with viral syndrome Other differentials such as meningitis, electrolyte pathology, bacterial infection considered Patient otherwise hemodynamically stable Clinical exam is benign at this time Patient requires close follow-up Given her presentation within 2 days of the symptoms, Tamiflu was provided and patient will return with any changes or concerns Last Vital Signs Date Time Temp Pulse Resp B/P (MAP) Pulse Ox O2 Delivery O2 Flow Rate FiO2 06/28/17 11:27 100.8 102 18 101/56 96 Room Air 100.8 Status: unchanged Disposition: HOME, SELF-CARE Condition: Stable Scripts Oseltamivir Phosphate (Tamiflu) 75 Mg Capsule 75 MG ORAL TWICE A DAY for 5 Days, CAP Prov: Briana Wilburn DO 06/28/17 Ibuprofen* (MOTRIN*) 600 Mg Tablet 600 MG ORAL Q8H PRN for For Pain, #20 TAB 0 Refills Prov: Briana Wilburn DO 06/28/17 Patient Instructions: Influenza, Adult, [id number] Additional Instructions: Patient is provided with the discharge instructions notified to follow up with primary doctor in the next 2-3 days otherwise return to the er with any worsening symptoms. Please note that this report is being documented using [employer] technology. This can lead to erroneous entry secondary to incorrect interpretation by the dictating instrument. Briana Wilburn DO June 28, 2017 11:43
[2017-06-28] MEDS ORDERED: ZOFRAN4 M1 ORAL (11:44)
[2017-06-28 11:49] VITALS: BP 101/56
== END 2017-06-28 12:07 | disposition home or self-care (01) ==
LOC: EMR 11:38
DX: J11.1 Influenza due to unidentified influenza virus with other respiratory manifestations (principal)
CPT/HCPCS: 99284

== ENCOUNTER 2017-09-10 23:34 | Emergency (ER) | payer MEDICAID ==
[~2017-09-10] VITALS: Ht 177.8 cm; Wt 54.4 kg
[~2017-09-10 23:34] MED LIST changes: +TAMIFLU75 MG ORAL; +ZOFRAN4 M1 ORAL
[2017-09-10 23:45] VITALS: BP 103/69
[2017-09-11] MEDS ORDERED: IBUPROFEN600 MG ORAL (00:47)
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
[2017-09-11 00:51] VITALS: BP 103/69
--- NOTE | 2017-09-11 08:39 | Diagnostic Imaging Report ---
Indication: Trauma Technique: Continuous helical CT scanning of the head was performed utilizing automated exposure control without intravenous contrast material. Axial and coronal reconstructions were obtained. Comparison: 12/28/2010 CT dose: Total DLP 1393.25 mGycm; CTDI vol 70.38 mGy Findings: There is no acute intracranial hemorrhage, mass effect or cortical edema. The ventricles, cisterns and sulci are within normal limits for age and stable compared to the prior exam. Visualized mastoid air cells and paranasal sinuses are unremarkable. There is no depressed calvarial fracture. No significant scalp hematoma/soft tissue swelling. IMPRESSION: No evidence of acute intracranial hemorrhage, mass effect or cortical edema. No acute osseous abnormality. This corresponds with the statrad preliminary report. The CT scanner at [facility] is accredited by the [employer] and the scans are performed using protocols designed to limit radiation exposure to as low as reasonably achievable to attain images of sufficient resolution adequate for diagnostic evaluation.
== END 2017-09-11 00:51 | disposition home or self-care (01) ==
LOC: EMR 23:59
DX: S09.90XA Unspecified injury of head, initial encounter (principal); F07.81 Postconcussional syndrome; Y04.2XXA Assault by strike against or bumped into by another person, initial encounter; Y93.9 Activity, unspecified; Y92.9 Unspecified place or not applicable
CPT/HCPCS: 70450; 99284

== ENCOUNTER 2018-01-09 11:22 | Emergency (ER) | payer SELFPAY ==
[~2018-01-09] VITALS: Ht 177.8 cm; Wt 63.5 kg
[2018-01-09 11:30] VITALS: BP 110/54
[2018-01-09] MEDS ORDERED: NKM (11:35)
--- NOTE | 2018-01-09 12:22 | Emergency Room Report ---
History of Present Illness General Chief Complaint: Sore Throat Source: Patient Present Illness HPI 32-year-old female presents to the emergency department complaining of 8 out of 10 in severity sore throat, persistent cough, increased sputum, nasal congestion and rhinorrhea 4 days. Patient denies fevers or chills. Patient reports multiple ill contacts at work. Patient states she is up-to-date with all her vaccinations she denies recent travel or . She denies history of asthma, COPD or being a smoker. Denies Ear pain, Neck pain/stiffness, Photophobia ,CP, Palpitations, LOC, AMS, dizziness, Changes in Vision, Sensation , paresthesias, or a sudden severe headache. Allergies: Coded Allergies: No Known Allergies (Verified , 12/30/10) Patient History Past Medical History: see triage record Past Surgical History: none Pertinent Family History: none Now: No Reviewed Nursing Documentation: PMH: Agreed; PSxH: Agreed Nursing Documentation-PMH Past Medical History: No Stated History Hx Cancer: No Hx Gastrointestinal Problems: No Hx Neurological Problems: No Review of Systems All Other Systems: negative except mentioned in HPI Physical Exam Vital Signs Date Time Temp Pulse Resp B/P (MAP) Pulse Ox O2 Delivery O2 Flow Rate FiO2 01/09/18 11:30 98.8 77 17 110/54 98 Room Air Sp02 EP Interpretation: reviewed, normal General Appearance: no apparent distress, alert, GCS 15, non-toxic Head: normocephalic, atraumatic Eyes: bilateral eye normal inspection, bilateral eye PERRL ENT: hearing grossly normal, normal voice, TMs + canals normal, uvula midline, moist mucus membranes, nasal congestion, pharyngeal erythema Neck: full range of motion, no meningismus, no bony tend Respiratory: chest non-tender, lungs clear, normal breath sounds, no respiratory distress, no accessory muscle use, no wheezing, speaking full sentences Cardiovascular #1: regular rate, rhythm Musculoskeletal: back normal, gait/station normal, normal range of motion, non- tender Neurologic: alert, oriented x3, responsive, motor strength/tone normal, sensory intact, normal gait, speech normal, grossly normal Psychiatric: judgement/insight normal Skin: normal color, no rash, warm/dry, well hydrated Lymphatic: no adenopathy Medical Decision Making PA Attestation Dr. Her is my supervising physician whom pt. management has been discussed with. Diagnostic Impression: Primary Impression: Bronchitis ER Course 32-year-old female presents to the emergency department complaining of 8 out of 10 in severity sore throat, persistent cough, increased sputum, nasal congestion and rhinorrhea 4 days. Patient denies fevers or chills. Patient reports multiple ill contacts at work. Patient states she is up-to-date with all her vaccinations she denies recent travel or . She denies history of asthma, COPD or being a smoker. Denies Ear pain, Neck pain/stiffness, Photophobia ,CP, Palpitations, LOC, AMS, dizziness, Changes in Vision, Sensation , paresthesias, or a sudden severe headache. Ddx considered but are not limited to URI, pneumonia, PE, strep pharyngitis, meningitis. Vital signs: Pt. is afebrile, the remaining VS are WNL H&PE are most consistent with URI- no meningeal signs, oropharynx is not involved, no evidence of bacterial infection at this time. ORDERS: none required at this time, the diagnosis is clinical ED INTERVENTIONS: None required at this time. --PT. EDUCATION: Discussed antibiotic resistance with inappropriate prescribing of antibiotics for viral illnesses. Discussed signs and symptoms to indicate viral illness versus bacterial illness. DISCHARGE: At this time pt. is stable for d/c to home. Will provide printed patient care instructions, and any necessary prescriptions. Care plan and follow up instructions have been discussed with the patient prior to discharge. Last Vital Signs Date Time Temp Pulse Resp B/P (MAP) Pulse Ox O2 Delivery O2 Flow Rate FiO2 01/09/18 11:30 98.8 77 17 110/54 98 Room Air Disposition: HOME, SELF-CARE Condition: Stable Departure Forms: Return to Work Return to Work Date: Jan 13, 2018 Work Restrictions: None Return to Full Activity: Jan 13, 2018 Patient Instructions: Acute Bronchitis, [id number] Additional Instructions: Take medications as directed. Follow up with a Primary Care Provider in 3-5 days, even if your symptoms have resolved. --Please review list of primary care clinics, if you do not already have a primary care provider Return sooner to ED if new symptoms occur, or current symptoms become worse. Do not drink alcohol, drive, or operate heavy machinery while taking Cough Syrup as this may cause drowsiness. - Please note that this Emergency Department Report was dictated using Dragon public relations senior associate technology software, occasionally this can lead to erroneous entry secondary to interpretation by the dictation equipment. Tanesha Bingham Jan 09, 2018 12:22
[2018-01-09] MEDS ORDERED: PROMETHAZINE-C118 M1 ORAL (12:24)
[2018-01-09] MEDS ORDERED: NEXAFED30 MG ORAL (12:24)
[2018-01-09] MEDS ORDERED: GUAIFENESIN1200 MG PO (12:24)
[2018-01-09] MEDS ORDERED: TYLENOL EXTRA500 MG ORAL (12:24)
[2018-01-09 12:29] VITALS: BP 110/54
== END 2018-01-09 12:28 | disposition home or self-care (01) ==
LOC: EMR 12:05
DX: J40 Bronchitis, not specified as acute or chronic (principal)
CPT/HCPCS: 99282

== ENCOUNTER 2018-01-26 11:01 | Emergency (ER) | payer MEDICAID ==
[~2018-01-26] VITALS: Ht 177.8 cm; Wt 53.5 kg
[~2018-01-26 11:01] MED LIST changes: +NEXAFED30 MG ORAL
[2018-01-26] MEDS ORDERED: IBUPROFEN600 MG ORAL (11:49)
[2018-01-26 11:56] VITALS: BP 104/63
--- NOTE | 2018-01-26 12:10 | Diagnostic Imaging Report ---
EXAM: XR Right Foot Complete, 3 or More Views CLINICAL HISTORY: TRAUMA TECHNIQUE: Frontal, lateral and oblique views of the right foot. COMPARISON: No relevant prior studies available. FINDINGS: Bones/joints: No visible displaced fracture. No dislocation. No osseous erosions. Visualized joint spaces appear unremarkable. Tiny 3 mm well-corticated ossific body lateral to the cuboid likely represents an accessory ossicle. Soft tissues: Unremarkable. No radiopaque foreign body. IMPRESSION: Unremarkable right foot x-rays.
--- NOTE | 2018-01-26 13:07 | Emergency Room Report ---
History of Present Illness General Chief Complaint: Lower Extremity Injury Source: Patient Present Illness HPI Patient presents with complaints of pain to the small toe on the right foot Reports that she stubbed her foot on the side of a bed this morning pain is 3 out of 10 worse with touch or ambulation Denies any other open cuts or wounds denies any pain to the ankle Allergies: Coded Allergies: No Known Allergies (Verified , 12/30/10) Patient History Past Medical History: see triage record Pertinent Family History: none Reviewed Nursing Documentation: PMH: Agreed; PSxH: Agreed Nursing Documentation-PMH Hx Cancer: No Hx Gastrointestinal Problems: No Hx Neurological Problems: No Review of Systems All Other Systems: negative except mentioned in HPI Physical Exam Vital Signs Date Time Temp Pulse Resp B/P (MAP) Pulse Ox O2 Delivery O2 Flow Rate FiO2 01/26/18 11:05 98.1 69 18 99/61 100 Room Air Sp02 EP Interpretation: reviewed, normal General Appearance: well appearing, no apparent distress Head: normocephalic, atraumatic Eyes: bilateral eye PERRL, bilateral eye EOMI ENT: hearing grossly normal, normal pharynx Neck: supple Musculoskeletal: other - No obvious swelling however tender on palpation of the right small toe Neurologic: alert, oriented x3 Skin: normal color, no rash Lymphatic: no adenopathy Medical Decision Making Diagnostic Impression: Primary Impression: contusion ER Course X-ray imaging obtained which does not show any obvious acute fracture Patient remains ambulatory and is stable for initial conservative outpatient trial Other X-Ray Diagnostic Results Other X-Ray Diagnostic Results : X-Ray ordered: right foot # of Views/Limited Vs Complete: 3 View Indication: Pain EP Interpretation: Yes Interpretation: no dislocation, no soft tissue swelling, no fractures Impression: No acute disease Electronically Signed by: Briana Wilburn DO Last Vital Signs Date Time Temp Pulse Resp B/P (MAP) Pulse Ox O2 Delivery O2 Flow Rate FiO2 01/26/18 11:56 98.1 85 20 104/63 100 Room Air Status: improved Disposition: HOME, SELF-CARE Condition: Improved Scripts Ibuprofen* (MOTRIN*) 600 Mg Tablet 600 MG ORAL Q8H PRN for For Pain, #20 TAB 0 Refills Prov: Briana Wilburn DO 01/26/18 Referrals: NOT CHOSEN IPA/MD,REFERRING (PCP) Patient Instructions: Foot Contusion Additional Instructions: Patient is provided with the discharge instructions notified to follow up with primary doctor in the next 2-3 days otherwise return to the er with any worsening symptoms. Please note that this report is being documented using [employer] technology. This can lead to erroneous entry secondary to incorrect interpretation by the dictating instrument. Briana Wilburn DO Jan 26, 2018 13:07
== END 2018-01-26 11:56 | disposition home or self-care (01) ==
LOC: EMR 11:38
DX: S90.121A Contusion of right lesser toe(s) without damage to nail, initial encounter (principal); M79.671 Pain in right foot; W22.8XXA Striking against or struck by other objects, initial encounter
CPT/HCPCS: 99283

== ENCOUNTER 2018-09-28 08:49 | Emergency (ER) | payer MEDICAID ==
[~2018-09-28] VITALS: Ht 177.8 cm; Wt 54.4 kg
[2018-09-28 09:03] VITALS: BP 119/69
--- NOTE | 2018-09-28 09:05 | Emergency Room Report ---
History of Present Illness General Chief Complaint: Dizziness Source: Patient, Medical Record Present Illness HPI Patient presents with complaints of general weakness and general malaise reports that she has history of endometriosis and at times her menstrual cycle is heavier than usual This has been the case over the past several days and patient feels that It has caused the weakness also some shortness of breath Patient feels that she gets fatigued more quickly as well denies any vomiting or diarrhea denies any chest pain Denies any back or flank pain Denies any dysuria frequency Patient reports that she has had a blood transfusion in the past last one was about 1-1/2 years ago at this hospital Allergies: Coded Allergies: No Known Allergies (Verified , 12/30/10) Patient History Past Medical History: see triage record Last Menstrual Period: 09/26/18 Reviewed Nursing Documentation: PMH: Agreed; PSxH: Agreed Nursing Documentation-PMH Past Medical History: No History, Except For Hx Cancer: No Hx Gastrointestinal Problems: No Hx Neurological Problems: No Review of Systems All Other Systems: negative except mentioned in HPI Physical Exam Vital Signs Date Time Temp Pulse Resp B/P (MAP) Pulse Ox O2 Delivery O2 Flow Rate FiO2 09/28/18 08:52 98.1 84 18 119/69 (86) 98 Room Air Sp02 EP Interpretation: reviewed, normal General Appearance: well appearing, no apparent distress Head: normocephalic, atraumatic Eyes: bilateral eye PERRL, bilateral eye EOMI ENT: hearing grossly normal, normal pharynx, TMs + canals normal, uvula midline Neck: full range of motion, supple, no meningismus, no bony tend Respiratory: lungs clear, normal breath sounds, no rhonchi, no respiratory distress, no retraction, no accessory muscle use Cardiovascular #1: normal peripheral pulses, regular rate, rhythm, no edema, no gallop, no JVD, no murmur Gastrointestinal: normal bowel sounds, non tender, soft, no mass, no organomegaly, non-distended, no guarding, no hernia, no pulsatile mass, no rebound Genitourinary: no CVA tenderness Musculoskeletal: normal inspection Neurologic: oriented x3, responsive, mathematics improvement teacher III-XII nml as tested, motor strength/ tone normal, sensory intact Psychiatric: mood/affect normal Skin: no rash Lymphatic: normal inspection, no adenopathy Medical Decision Making Diagnostic Impression: Primary Impression: Dizziness Additional Impressions: Anemia Dysfunctional uterine bleeding ER Course With the patient's history and examination, multiple differentials considered, including but not limited to , ectopic , ovarian torsion, gastritis, cholecystitis, pancreatitis, appendicitis Other differential such as anemia considered Patient's blood work Shows hemoglobin that is improved from previous examinations Patient's heart rate remains appropriate blood pressure also appropriate Patient did not provide urine sample This does limit our work-up and can lead to possible missed diagnosis such as ectopic patient is awake alert and has full decision-making capacity And does not want to provide any further urine sample Patient also is supposed to be on iron pills however reports that she does not like the way they react with her body including constipation She is provided a copy of her blood work and reports that she has follow-up with her primary physician She has attempted oral control in the past Reports having surgical procedures for this and requires Repeat outpatient follow-up Labs Test 09/28/18 09:18 White Blood Count 4.7 K/UL (4.8-10.8) Red Blood Count 4.73 M/UL (4.20-5.40) Hemoglobin 10.3 G/DL (12.0-16.0) Hematocrit 35.0 % (37.0-47.0) Mean Corpuscular Volume 74 FL (80-99) Mean Corpuscular Hemoglobin 21.9 PG (27.0-31.0) Mean Corpuscular Hemoglobin Concent 29.5 G/DL (32.0-36.0) Red Cell Distribution Width 14.7 % (11.6-14.8) Platelet Count 321 K/UL (150-450) Mean Platelet Volume 6.5 FL (6.5-10.1) Neutrophils (%) (Auto) 55.8 % (45.0-75.0) Lymphocytes (%) (Auto) 29.5 % (20.0-45.0) Monocytes (%) (Auto) 8.6 % (1.0-10.0) Eosinophils (%) (Auto) 4.6 % (0.0-3.0) Basophils (%) (Auto) 1.5 % (0.0-2.0) Sodium Level 140 MMOL/L (136-145) Potassium Level 3.9 MMOL/L (3.5-5.1) Chloride Level 106 MMOL/L (98-107) Carbon Dioxide Level 25 MMOL/L (21-32) Anion Gap 9 mmol/L (5-15) Blood Urea Nitrogen 9 mg/dL (7-18) Creatinine 0.8 MG/DL (0.55-1.30) Estimat Glomerular Filtration Rate > 60 mL/min (>60) Glucose Level 97 MG/DL (74-106) Calcium Level 9.2 MG/DL (8.5-10.1) Total Bilirubin 0.5 MG/DL (0.2-1.0) Aspartate Amino Transf (AST/SGOT) 16 U/L (15-37) Alanine Aminotransferase (ALT/SGPT) 9 U/L (12-78) Alkaline Phosphatase 44 U/L (46-116) Total Protein 8.2 G/DL (6.4-8.2) Albumin 3.9 G/DL (3.4-5.0) Globulin 4.3 g/dL Albumin/Globulin Ratio 0.9 (1.0-2.7) Lipase 55 U/L (73-393) Rhythm Strip Diag. Results EP Interpretation: yes Rate: 60 Rhythm: NSR, no PVC's, no ectopy Last Vital Signs Date Time Temp Pulse Resp B/P (MAP) Pulse Ox O2 Delivery O2 Flow Rate FiO2 09/28/18 09:03 98.1 18 119/69 98 Room Air 09/28/18 08:52 84 Status: improved Disposition: HOME, SELF-CARE Condition: Improved Scripts Ferrous Sulfate* (FERROUS SULFATE*) 325 Mg Tablet 325 MG ORAL DAILY, #30 TAB 0 Refills Prov: Briana Wilburn DO 09/28/18 Referrals: NON PHYSICIAN (PCP) Additional Instructions: Patient is provided with the discharge instructions notified to follow up with primary doctor in the next 2-3 days otherwise return to the er with any worsening symptoms. Please note that this report is being documented using [employer] technology. This can lead to erroneous entry secondary to incorrect interpretation by the dictating instrument. Briana Wilburn DO Sep 28, 2018 09:05
[2018-09-28 09:33] LABS: BASOPHILS % (AUTO) 1.5 % (0.0-2.0); EOSINOPHILS % (AUTO) 4.6 % (0.0-3.0); HEMOGLOBIN 10.3 G/DL (12.0-16.0); LYMPHOCYTES % (AUTO) 29.5 % (20.0-45.0); MEAN CORPUSCULAR VOLUME 74 FL (80-99); MONOCYTES % (AUTO) 8.6 % (1.0-10.0); NEUTROPHILS % (AUTO) 55.8 % (45.0-75.0); PLATELET COUNT 321 K/UL (150-450); RED BLOOD COUNT 4.73 M/UL (4.20-5.40); RED CELL DISTRIBUTION WIDTH 14.7 % (11.6-14.8); WHITE BLOOD COUNT 4.7 K/UL (4.8-10.8)
[2018-09-28 09:47] LABS: ANION GAP 9 mmol/L (5-15); BLOOD UREA NITROGEN 9 mg/dL (7-18); CALCIUM 9.2 MG/DL (8.5-10.1); CARBON DIOXIDE 25 MMOL/L (21-32); CHLORIDE 106 MMOL/L (98-107); CREATININE 0.8 MG/DL (0.55-1.30); POTASSIUM 3.9 MMOL/L (3.5-5.1); SODIUM 140 MMOL/L (136-145)
[2018-09-28 09:50] LABS: ALANINE AMINOTRANSFERASE 9 U/L (12-78); ALBUMIN 3.9 G/DL (3.4-5.0); ALBUMIN/GLOBULIN RATIO 0.9 (1.0-2.7); ALKALINE PHOSPHATASE 44 U/L (46-116); ASPARTATE AMINO TRANSFERASE 16 U/L (15-37); BILIRUBIN,TOTAL 0.5 MG/DL (0.2-1.0)
--- NOTE | 2018-09-28 09:55 | NUR ---
ED Nurse Note: pt walked in from home c/o lower pelvic pain weak and dizzy ermd eval done blood sent pt states she can not provide urine yet ermd aware.
[2018-09-28 09:58] VITALS: BP 91/33
--- NOTE | 2018-09-28 09:59 | NUR ---
ED Nurse Note: pt's bp 91/33 mother at bedside states pt's bp normally runs low will recheck
[2018-09-28 10:05] VITALS: BP 105/50
[2018-09-28] MEDS ORDERED: FERROUS SULFAT325 MG ORAL (10:10)
[2018-09-28 10:33] VITALS: BP 106/50
--- NOTE | 2018-09-28 10:37 | NUR ---
ER DISCHARGE NOTE: Patient is cleared to be discharged per ERMD, pt is aox4, on room air, with stable vital signs. pt was given dc and prescription instructions, pt was able to verbalize understanding, pt id band and iv site removed without complications. pt is able to ambulate with steady gait. pt took all belongings.
== END 2018-09-28 10:37 | disposition home or self-care (01) ==
LOC: EMR 08:58
DX: R42 Dizziness and giddiness (principal); N93.8 Other specified abnormal uterine and vaginal bleeding; D64.9 Anemia, unspecified
CPT/HCPCS: 36415; 80053; 83690; 85025; 99284

== ENCOUNTER 2018-09-30 21:04 | Emergency (ER) | payer MEDICAID ==
[~2018-09-30] VITALS: Ht 177.8 cm; Wt 53.5 kg
[~2018-09-30 21:04] MED LIST changes: +FERROUS SULFAT325 MG ORAL
[2018-09-30 22:20] VITALS: BP 123/71
--- NOTE | 2018-09-30 22:20 | NUR ---
ED Nurse Note: Patient walked into ER c/o abdxominal pain, N/V. AAO x4, VSS at this time, skin is warm to touch.
[2018-09-30 23:25] LABS: APPEARANCE,URINE CLEAR; BILIRUBIN, URINE NEGATIVE (NEGATIVE); COLOR,URINE PALE YELLOW; GLUCOSE, URINE (UA) NEGATIVE (NEGATIVE); KETONES,URINE 1+ (NEGATIVE); LEUKOCYTE ESTERASE ,URINE NEGATIVE (NEGATIVE); NITRITE,URINE NEGATIVE (NEGATIVE); PH,URINE 6.5 (4.5-8.0); PROTEIN,URINE NEGATIVE (NEGATIVE); UROBILINOGEN,URINE NORMAL MG/DL (0.0-1.0)
--- NOTE | 2018-10-01 00:23 | Emergency Room Report ---
History of Present Illness General Chief Complaint: Abdominal Pain Source: Patient Present Illness HPI Is a 33-year-old female with a history of dysfunctional uterine bleeding with anemia. She was here couple days ago for weakness and dizziness. She came back because she says not getting better. Work-up did show a hemoglobin of 10. She also complaining abdominal pain. She says she is thirsty. Alpine weak. Worse with standing up. No urinary complaint. Allergies: Coded Allergies: No Known Allergies (Verified , 12/30/10) Patient History Past Medical History: see triage record, old chart reviewed Past Surgical History: none Pertinent Family History: none Social History: Denies: smoking Last Menstrual Period: 09/27/18 Now: No Immunizations: other Reviewed Nursing Documentation: PMH: Agreed; PSxH: Agreed Nursing Documentation-PMH Past Medical History: No History, Except For Hx Cancer: No Hx Gastrointestinal Problems: No Hx Neurological Problems: No Review of Systems Eye: Denies: eye pain, blurred vision ENT: Denies: ear pain, nose congestion, throat swelling Respiratory: Denies: cough, shortness of breath Cardiovascular: Denies: chest pain, palpitations Gastrointestinal: Reports: abdominal pain; Denies: diarrhea, nausea, vomiting Musculoskeletal: Denies: back pain, joint pain Skin: Denies: rash Neurological: Denies: headache, numbness Endocrine: Denies: increased thirst, increased urine Hematologic/Lymphatic: Denies: easy bruising All Other Systems: negative except mentioned in HPI Physical Exam Vital Signs Date Time Temp Pulse Resp B/P (MAP) Pulse Ox O2 Delivery O2 Flow Rate FiO2 09/30/18 22:06 98.2 72 18 123/71 (88) 96 Room Air Vitals normal Sp02 EP Interpretation: reviewed, normal General Appearance: well appearing, no apparent distress, alert Head: normocephalic, atraumatic Eyes: bilateral eye PERRL, bilateral eye EOMI, bilateral eye conjunctivae pale ENT: hearing grossly normal, normal pharynx Neck: full range of motion, supple, no meningismus Respiratory: chest non-tender, lungs clear, normal breath sounds Cardiovascular #1: regular rate, rhythm, no murmur Gastrointestinal: normal bowel sounds, no mass, no organomegaly, no bruit, non- distended, tenderness - diffuse Musculoskeletal: back normal, gait/station normal, normal range of motion Psychiatric: mood/affect normal Medical Decision Making Diagnostic Impression: Primary Impression: Anemia Qualified Codes: D50.0 - Iron deficiency anemia secondary to blood loss ( chronic) Additional Impression: Abdominal pain Qualified Codes: R10.84 - Generalized abdominal pain ER Course Patient with dizziness. Most likely secondary to anemia. No evidence of arrhythmia or neoplastic process or bleed. She has abdominal pain but CT scan is unremarkable. She will try to get the symptoms of Carlton disease. She claimed that she is very weak and thirsty. Wanting to eat salt all the time. Her labs from a couple days ago was unremarkable. Potassium was normal. Glucose was normal. I see no other signs or symptoms of Carlton's. This can be worked up as an outpatient. Will discharge home. CT/MRI/US Diagnostic Results CT/MRI/US Diagnostic Results : Imaging Test Ordered: CT abdomen pelvis Impression Negative per radiologist Last Vital Signs Date Time Temp Pulse Resp B/P (MAP) Pulse Ox O2 Delivery O2 Flow Rate FiO2 09/30/18 22:20 72 18 Room Air 09/30/18 22:20 98.2 123/71 96 Status: improved Disposition: HOME, SELF-CARE Condition: Stable Referrals: OTHER,REFERRING (PCP) Patient Instructions: Abdominal Pain, Adult Additional Instructions: Follow-up with your doctor in 7 days. If you are worried about Randall disease , this can be worked up as an outpatient. Take your iron supplement. Return if worse. Krishna Kearns MD Oct 01, 2018 00:23
[2018-10-01 00:31] VITALS: BP 123/71
--- NOTE | 2018-10-01 00:32 | NUR ---
ED Nurse Note: Pt cleared by health care Provider for discharge. DC instructions/prescription was given and explained to pt and verbalized understanding of teachings. All medical deviecs such as ID band removed. Pt is AAO x4, ambulatory and left with all personal belongings.
--- NOTE | 2018-10-01 10:45 | Diagnostic Imaging Report ---
Indication: 10 out of 10 abdominal pain x1 week Technique: Spiral acquisitions obtained through the abdomen and pelvis. No oral contrast utilized, per emergency room physician request No IV contrast utilized, per referring physician request.. Multiplanar reconstructions were generated. Total dose length product 555.05 mGycm. CTDIvol(s) 10.31 mGy. Dose reduction achieved using automated exposure control Comparison: 02/02/2017 contrast study Findings: Normal appendix. Somewhat abundant distal colonic stool. No evidence of diverticulosis or diverticulitis. No small bowel distention. No free or loculated intraperitoneal gas or fluid is evident. The distal esophagus, stomach, duodenum are unremarkable. Lack of IV contrast limits assessment of solid organs. The liver demonstrates scattered subcentimeter low-attenuation lesions which are unchanged from the prior study. The gallbladder, bile ducts, pancreas, spleen, adrenals are unremarkable. 3 mm nonobstructive calculus is are seen in a left lower pole renal calyx, also evident previously. No hydronephrosis or hydroureter or ureteral calculi. No pelvic mass or adenopathy. No retroperitoneal or mesenteric mass or adenopathy. Unremarkable bladder. The included lung bases are clear. The bones are unremarkable. Impression: No acute abnormality Nonobstructing 3 mm left lower pole intrarenal calculus, also previously described Subcentimeter low-attenuation liver lesions, too small to characterize, most likely benign simple cysts or bile hamartomas. No further follow-up necessary Somewhat abundant distal colonic stool, nonspecific This essentially agrees with the preliminary interpretation provided overnight by [facility]. The CT scanner at [facility] is accredited by the [employer] and the scans are performed using protocols designed to limit radiation exposure to as low as reasonably achievable to attain images of sufficient resolution adequate for diagnostic evaluation.
== END 2018-10-01 00:32 | disposition home or self-care (01) ==
LOC: EMR 22:29
DX: D50.0 Iron deficiency anemia secondary to blood loss (chronic) (principal); R10.84 Generalized abdominal pain
CPT/HCPCS: 74176; 81003; 81025; 99284

== ENCOUNTER 2018-11-16 12:20 | Emergency (ER) | payer MEDICAID ==
[~2018-11-16] VITALS: Ht 177.8 cm; Wt 54.4 kg
[2018-11-16] MEDS ORDERED: NKM (12:34)
[2018-11-16 13:00] VITALS: BP 103/65
--- NOTE | 2018-11-16 13:01 | NUR ---
ED Nurse Note:pt. came with mid upper back abscess for last 2 days
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
[2018-11-16] MEDS ORDERED: SULFAMETHOXAZO1 EAC2 ORAL (14:13)
[2018-11-16] MEDS ORDERED: TYLENOL EXTRA500 MG ORAL (14:13)
[2018-11-16] MEDS ORDERED: ACETAMINOPHEN500 M3 ORAL (14:13)
[2018-11-16] MEDS ORDERED: MUPIROCIN22 GM TOPIC (14:13)
[2018-11-16] MEDS ORDERED: CEPHALEXIN500 MG ORAL (14:13)
[2018-11-16 14:25] VITALS: BP 103/65
--- NOTE | 2018-11-16 14:25 | NUR ---
ER DISCHARGE NOTE:dry dressing applied to back wound Patient is cleared to be discharged per ERMD, pt is aox4, on room air, with stable vital signs. pt was given dc and prescription instructions, pt was able to verbalize understanding, pt is able to ambulate with steady gait. pt took all belongings.
== END 2018-11-16 14:36 | disposition home or self-care (01) ==
LOC: EMR 13:25
DX: L72.0 Epidermal cyst (principal); L08.89 Other specified local infections of the skin and subcutaneous tissue
CPT/HCPCS: 10060; Z7502; 99283

== ENCOUNTER → 2019-01-09 | Emergency (ER) | payer MEDICAID ==
[~2019-01-09] VITALS: Ht 177.8 cm; Wt 54.4 kg
[~2019-01-09] MED LIST changes: +ACETAMINOPHEN500 M3 ORAL; +Azithromycin 250mg tab ORAL ONE; +CEPHALEXIN500 MG ORAL; +FLUCONAZOLE100 MG ORAL; +GYNE-LOTRIMIN45 GM VG; +Lidocaine 1% MPF 10mg/ml 5ml INJ ONE; +MUPIROCIN22 GM TOPIC; +SULFAMETHOXAZO1 EAC2 ORAL
[2019-01-09 11:47] VITALS: BP 97/61
--- NOTE | 2019-01-09 11:49 | Emergency Room Report ---
History of Present Illness General Chief Complaint: Female Urogenital Problems Source: Patient Present Illness HPI Patient presents with 3 days of pelvic pain and white discharge. She had unprotected sex in October. She knows she is not at this time. She has had endometriosis and ovarian cysts in the past and it feels somewhat like that. The discharge is what is concerning her also. She would also like to be treated for possible STD at this time. The discharge is white. She denies itching. There is no abnormal bleeding. She rates the pain 2/10. No fevers or chills. She had a similar presentation several months ago. She was not sexually active at that time. She was not given a diagnosis. The discharge seemed to improve. 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 Nursing Documentation: PMH: Agreed; PSxH: Agreed Nursing Documentation-PMH Hx Cancer: No Hx Gastrointestinal Problems: No Hx Neurological Problems: No Review of Systems All Other Systems: negative except mentioned in HPI Physical Exam Vital Signs Date Time Temp Pulse Resp B/P (MAP) Pulse Ox O2 Delivery O2 Flow Rate FiO2 01/09/19 11:32 98.1 73 19 97/61 (73) 99 Room Air Sp02 EP Interpretation: reviewed, normal General Appearance: well appearing, no apparent distress, GCS 15 Head: normocephalic Eyes: bilateral eye normal inspection, bilateral eye PERRL, bilateral eye EOMI ENT: moist mucus membranes Neck: supple Respiratory: lungs clear, normal breath sounds Cardiovascular #1: regular rate, rhythm Cardiovascular #2: 2+ radial (R) Gastrointestinal: normal inspection, normal bowel sounds, non tender, no mass, non-distended Genitourinary: no CVA tenderness, ext genitalia/vag normal, uterus normal, other - No CVA tenderness, white discharge Musculoskeletal: back normal, normal range of motion, gait/station normal Neurologic: alert, oriented x3, grossly normal Psychiatric: mood/affect normal Skin: no rash Medical Decision Making Diagnostic Impression: Primary Impression: Pelvic pain Additional Impression: Monilia infection ER Course Patient presents with pelvic pain and discharge. She denies fever.. Differential includes STD, vaginitis, yeast infection, UTI amongst others. Urinalysis and wet mount are ordered. The patient is given Motrin. Patient is improved and moved to Coley chair awaiting results. Urinalysis unremarkable. Wet mount negative however clinical exam consistent with monilia. 13:58. 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 Laboratory Tests Test 01/09/19 11:50 Urine Color Pale yellow Urine Appearance Clear Urine pH 6 (4.5-8.0) Urine Specific [place] 1.005 (1.005-1.035) Urine Protein Negative (NEGATIVE) Urine Glucose (UA) Negative (NEGATIVE) Urine Ketones Negative (NEGATIVE) Urine Blood 1+ (NEGATIVE) H Urine Nitrite Negative (NEGATIVE) Urine Bilirubin Negative (NEGATIVE) Urine Urobilinogen Normal MG/DL (0.0-1.0) Urine Leukocyte Esterase Negative (NEGATIVE) Urine RBC 2-4 /HPF (0 - 2) H Urine WBC 0-2 /HPF (0 - 2) Urine Squamous Epithelial Cells Many /LPF (NONE/OCC) H Urine Bacteria Few /HPF (NONE) Urine HCG, Qualitative Negative (NEGATIVE) Chlamydia trachomatis RNA Pending Neisseria gonorrhoeae RNA Pending Last Vital Signs Date Time Temp Pulse Resp B/P (MAP) Pulse Ox O2 Delivery O2 Flow Rate FiO2 01/09/19 11:47 98.1 19 97/61 99 Room Air 01/09/19 11:32 73 Status: improved Disposition: ELOPED Condition: Improved Scripts Fluconazole (FLUCONAZOLE) 100 Mg Tablet 100 MG ORAL DAILY, #1 TAB 0 Refills Prov: Gabriel Garcia MD 01/09/19 Clotrimazole (GYNE-LOTRIMIN*) 45 Gm Cream.appl 1 APPLIC VG QHS, #45 GM 0 Refills Prov: Gabriel Garcia MD 01/09/19 Gabriel Garcia MD Jan 09, 2019 11:48
[2019-01-09 12:10] LABS: APPEARANCE,URINE CLEAR; BILIRUBIN, URINE NEGATIVE (NEGATIVE); COLOR,URINE PALE YELLOW; GLUCOSE, URINE (UA) NEGATIVE (NEGATIVE); KETONES,URINE NEGATIVE (NEGATIVE); LEUKOCYTE ESTERASE ,URINE NEGATIVE (NEGATIVE); NITRITE,URINE NEGATIVE (NEGATIVE); PH,URINE 6 (4.5-8.0); PROTEIN,URINE NEGATIVE (NEGATIVE); UROBILINOGEN,URINE NORMAL MG/DL (0.0-1.0)
== END | disposition home or self-care (01) ==
LOC: EMR 13:30
DX: B37.49 Other urogenital candidiasis (principal); R10.2 Pelvic and perineal pain
CPT/HCPCS: 81003; 81025; 87210; 87491; 87590; 96372; 96374; J0696; Q0144; Z7502; 99284